=== PATIENT | female | born 1955 | race Caucasian/White ===

== ENCOUNTER → 2020-03-24 | Outpatient (CLI) | payer BC | END | disposition home or self-care (01) | LOC: RAD 14:28 | PROVIDERS: ATTEND Orthopaedic Surgery | DX: M17.11 Unilateral primary osteoarthritis, right knee (principal) | CPT/HCPCS: 73700 ==

== ENCOUNTER 2020-04-27 09:00 | Inpatient (IN) | payer BC ==
[2020-04-25 16:05] VITALS: BP 107/76
--- NOTE | 2020-04-25 16:34 | PCM.EKG ---
[facility] Test Date: 2020-04-25 Test Time: 16:18:36 Pat Name: OSCAR ALEJANDRA Department: Room: Gender: F Agency Sales Representative: SELENA : 1955 Requested By: ARMANDO NUNEZ Order Number: [id number] Reading MD: Measurements Intervals [place] Rate: 66 P: 62 CO: 114 QRS: 81 QRSD: 82 T: 22 QT: 460 QTc: 482 Interpretive Statements Normal sinus rhythm ST & T wave abnormality, consider anterior ischemia Prolonged QT No previous ECG available for comparison Please click the below link to view image of tracing.
[2020-04-25 16:45] LABS: BASOPHIL % 0.7 % (0.0-0.2); EOSINOPHIL # 0.1 10^3/uL (0.0-0.2); EOSINOPHIL % 2.6 % (0.0-5.0); LYMPHOCYTES % 43.8 % (24.0-44.0); MEAN CORP HGB 31.9 pg (26-34); MONOCYTES # 0.4 10^3/uL (0.3-0.8); MONOCYTES % 6.9 % (5.0-12.0); NEUTROPHIL # 2.5 10^3/uL (1.8-7.7); PLATELET COUNT 280 10^3/uL (150-400); RED CELL DISTRIBUTION WIDTH 12.3 % (11.5-14.5)
[2020-04-25 17:23] LABS: CALCIUM 8.5 mg/dL (8.4-10.5); CARBON DIOXIDE 26.9 mmol/L (20.0-32)
[2020-04-27] VITALS (10 sets, daily range): BP systolic 102–138; BP diastolic 41–82
[~2020-04-27] VITALS: Ht 170.2 cm; Wt 86.6 kg
[~2020-04-27 09:00] MED LIST: ASPI-485 PO; BACTROBAN OINTMENT TP ONE; BACTROBAN TP ONE; BLACK SEED OIL PEG; DICL50TA2 PO; LACTATED RINGERS 1,000 ML ONE; NS 100ML 100 ML IV ONE; NS 250ML 250 ML IV ONE; NS 3000ML IRR IR ONE; OMEP20CA19 PO; SODIUM CHLORIDE IRR BOTTLE IR ONE; VANCOMYCIN HCL 1 GM ONE; VANCOMYCIN HCL 1 GM in NS 250ML 250 ML IV ONE; WATER ONE
[2020-04-27] MEDS: LACTATED RINGERS 1,000 ML IV SCH ×2 (09:02→16:00)
[2020-04-27] MEDS ORDERED: ASCO500C PO (09:07)
[2020-04-27] MEDS ORDERED: MULT-632 PO (09:07)
[2020-04-27] MEDS ORDERED: VITA50004 PO (09:07)
[2020-04-27] MEDS ORDERED: VITA80003 PO (09:07)
[2020-04-27] MEDS ORDERED: EXPAREL 133 MG/10 ML VIAL IJ ONE (11:35)
[2020-04-27] MEDS ORDERED: TORADOL ONE (11:42)
[2020-04-27] MEDS ORDERED: LIDOCAINE 2% VIAL ONE (11:42)
[2020-04-27] MEDS ORDERED: NEOSTIGMINE ONE (11:42)
[2020-04-27] MEDS ORDERED: NAROPIN 0.2% 40 MG/20 ML VIAL ONE (11:42)
[2020-04-27] MEDS ORDERED: SUBLIMAZE ONE ×2 (11:43→14:48)
[2020-04-27] MEDS ORDERED: DECADRON ONE (11:43)
[2020-04-27] MEDS ORDERED: ZOFRAN ONE (11:43)
[2020-04-27] MEDS ORDERED: ROCURONIUM BROMIDE IV ONE (11:43)
[2020-04-27] MEDS ORDERED: DIPRIVAN IV ONE (11:44)
[2020-04-27] MEDS ORDERED: VERSED ONE ×2 (11:44→15:28)
[2020-04-27] MEDS ORDERED: DILAUDID ONE (11:44)
--- NOTE | 2020-04-27 14:33 | HPH ---
ADMIT DATE: 04/27/2020 CHIEF COMPLAINT: Painful right knee. HISTORY OF PRESENT ILLNESS: A 65-year-old female with a several year history of pain about the right knee. It got progressively worse over the last 3-4 months. She has difficulty walking for exercise as well as working out. She has pain with just household ambulation and complains of swelling and limping. She has tried bracing as well as a home exercise program and physical therapy. She tried some Voltaren as well as tramadol for the pain. The patient has also had several cortisone injections without improvement. ALLERGIES: THE PATIENT ALLERGIES INCLUDE PENICILLIN AND MINOCYCLINE. MEDICATIONS: Include Omeprazole as well as Voltaren. PAST MEDICAL HISTORY: She denies any medical problems. PAST SURGICAL HISTORY: Includes hysterectomy, cholecystectomy, tonsillectomy, back surgery. FAMILY HISTORY: Negative. SOCIAL HISTORY: She is and lives in [place]. He does not smoke or drink. REVIEW OF SYSTEMS: Negative for chest pain, shortness of breath, nausea, vomiting, melena, hematochezia, dysuria, hematuria, fever, chills or weight loss. PHYSICAL EXAMINATION: GENERAL: Shows a 5 feet, 7 inch, 145 pound female in no acute distress. HEENT: Within normal limits. CHEST: Clear to auscultation bilaterally. HEART: Regular rate and rhythm, no murmur. ABDOMEN: Soft, nontender, good bowel sounds. EXTREMITIES: Right knee has 1+ effusion. She has full range of motion. There is mild crepitation especially about the patellofemoral joint with flexion and extension. Her ligaments are all intact. She has no varus or valgus malalignment. NEUROLOGIC: Shows that she is awake and alert. She is oriented x 3. Her cranial nerves 2-12 are grossly intact. She has 5/5 strength in all muscle groups of both upper and lower extremities, bilaterally symmetric. IMAGING: MRI scan shows tricompartmental osteoarthritis about the right knee. ASSESSMENT: Osteoarthritis, right knee. PLAN: The patient is being admitted for right total knee arthroplasty. The risks and hazards of the procedure have been reviewed with the patient. She understands the risk involved and wants to proceed as planned. Jose A Velazquez MD DR: STEPAN/radha JOB# [id number]
--- NOTE | 2020-04-27 14:41 | OPH ---
DATE OF SURGERY: 04/27/2020 PREOPERATIVE DIAGNOSIS: Osteoarthritis of the right knee. POSTOPERATIVE DIAGNOSIS: Osteoarthritis of the right knee. OPERATIVE PROCEDURE: Right total knee arthroplasty using Medacta Sphere knee, size 4 femur, a size t3i4 tibia and a medium dome patella. All components were cemented. SURGEON: Jose A Velazquez MD ANESTHESIA: General endotracheal. TOURNIQUET TIME: 63 minutes at 300 mmHg. DRAINS: None. BLOOD LOSS: 300 mL. DESCRIPTION OF INDICATIONS: The patient is a 65-year-old female with a several year history of pain about the right knee, getting progressively worse over the last several months. She has difficulty with squatting as well as getting in and out of a chair. She complains of pain when she tries to work out or walk for exercise. She complains of limping and swelling. She had a long trial of conservative treatment and has not been successful in the long run including cortisone injections, anti-inflammatories, home exercise program, off the shelf bracing. The patient was taken to the operating room today for total knee arthroplasty. MRI scan shows tricompartmental osteoarthritis of the right knee. DESCRIPTION OF PROCEDURE: The patient was placed on the operating table in the supine position. A general endotracheal anesthetic was induced without difficulty. The patient had the right thigh padded and a tourniquet was applied. The right lower extremity was sterilely prepped and draped. The patient had the leg exsanguinated with an Esmarch and the tourniquet was inflated to 300 mmHg. The knee was flexed to 90 degrees. An anterior incision was made about the knee. Incision was taken through the skin and the subcutaneous tissues. The patient had full thickness flaps developed medially and laterally. A medial parapatellar arthrotomy was performed. The patient had the patella deviated laterally. The capsule and MCL were released around the posterior medial corner. Medial and lateral meniscectomies were performed. The anterior and posterior cruciate ligaments were released. The patient had the [employer] femoral cutting guide placed about the distal femur. Cutting guide was held into position with multiple pins and the distal femoral cut was made with the power saw. The patient then had the #2 size 4 cutting block applied. It was held into position with 2 screws and 2 pins. The patient had the anterior and posterior femoral cuts made as well as the chamfer cuts. The tibia was subluxed anteriorly. Medial and lateral meniscectomies were completed. The [employer] tibial guide was placed about the proximal tibia and held into position with multiple pins. Tibial cut was then made with the power saw. The patient had the patella everted. The peripheral osteophytes were trimmed. The peripheral edges were cauterized. The patellar cut was then made with the power saw. She still had 12 mm of patella left. The drill holes were made. Trial medium patella was used and had good coverage. The knee was flexed to 90 degrees. We used a t3i4 tibial trial component held into position with multiple pins. The central drill hole was made and the cruciate punch was used to stabilize the tibial component. A size 10 polyethylene component was tried. The size 4 femoral component was impacted into position. The knee went out into full extension. She had 120 degrees of flexion. There was excellent tracking of her patella. The final medial and lateral femoral drill holes were made. The femoral sulcus cut was made. The patient then had the trial components all removed. The bone ends were copiously irrigated and dried. A size t3i4 tibial component was cemented into position. The 10 mm insert was used and secured with an anterior screw. The size 4 femoral component was likewise cemented as well as a medium dome patella. After all the excess cement was removed and the cement had hardened, then the tourniquet was released. The knee had been irrigated for 3 minutes with Betadine-containing solution. The bleeding was controlled with the Aquamantys device. The capsule was then closed with a #2 PDS in interrupted [id number] manner. The subcutaneous was closed with 2-0 barbed Monocryl in a running subcuticular manner. The skin was closed with maliha. A suction Prevena type dressing was applied, reinforced with 4 x 4s, cast padding and an Nba wrap. The patient was extubated in the operating room, sent to recovery in stable condition. Jose A Velazquez MD DR: STEPAN/radha JOB# [id number]
[2020-04-27] MEDS ORDERED: OFIRMEV 100 ML IV ONE (14:47)
[2020-04-27] MEDS ORDERED: EPHEDRINE SULFATE IV PRN (15:00)
[2020-04-27] MEDS ORDERED: ULTRAM PO PRN (15:00)
[2020-04-27] MEDS ORDERED: CEPACOL SORE THROAT LOZENGE MM PRN (15:00)
[2020-04-27] MEDS ORDERED: BENADRYL IV PRN (15:00)
[2020-04-27] MEDS ORDERED: LACTATED RINGERS 1,000 ML IV SCH (15:00)
[2020-04-27] MEDS ORDERED: OFIRMEV IV ONE (15:00)
[2020-04-27] MEDS ORDERED: ZOFRAN IV PRN (15:00)
[2020-04-27] MEDS: VANCOMYCIN HCL 1 GM in NS 250ML 250 ML IV SCH (15:00)
[2020-04-27] MEDS ORDERED: DEMEROL IV PRN (15:00)
[2020-04-27] MEDS ORDERED: VENTOLIN IH PRN (15:00)
[2020-04-27] MEDS ORDERED: TRANDATE IV PRN (15:00)
[2020-04-27] MEDS ORDERED: SUBLIMAZE IV PRN (15:00)
[2020-04-27] MEDS ORDERED: DILAUDID IV PRN (15:00)
[2020-04-27] MEDS ORDERED: MORPHINE SULFATE ONE (15:28)
[2020-04-27] MEDS ORDERED: ULTRAM PO SCH (16:00)
--- NOTE | 2020-04-27 16:15 | NUR ---
patient arrived on unit from PACU report taken and vitals and admission assessment initiated.
[2020-04-27] MEDS ORDERED: ULTRAM ONE (17:11)
[2020-04-27] MEDS: VALIUM PO PRN (17:17)
--- NOTE | 2020-04-27 18:00 | NUR ---
Dinner Tray unable to contact the kitchen for a dinner tray contacted [facility] for a sandwich
[2020-04-27 18:04] LABS: MEAN CORP HGB 31.8 pg (26-34); RED CELL DISTRIBUTION WIDTH 12.4 % (11.5-14.5)
[2020-04-27] MEDS: TYLENOL PO SCH (18:48)
--- NOTE | 2020-04-27 19:12 | PRM.PN ---
Subjective Subjective Date: Apr 27, 2020 Time: 19:11 Subjective Complain of severe pain right knee VSS HGB 11.6 NVM+ Will adjust pain meds Patient History: Alzheimer's disease G8 MOTHER Asthma G8 FATHER Hypertension G8 FATHER No known health problems G8 BROTHER G8 SISTER G8 SISTER 19 CHILD No Family History of: Cerebrovascular disorder Chronic obstructive pulmonary disease Congestive heart failure Diabetes insipidus Diabetes mellitus Parkinson's disease VTE VTE Risk Total Score: >5 VTE Risk Score VTE Risk: Score 0-1 = Low Risk (Aggressive mobilization; early ambulation; no VTE prophylaxis required) Score 2: Moderate Risk (Intermittent/Pneumatic Compression Device OR Lovenox/Heparin/Coumadin) Score 3-4: High Risk (Intermittent/Pneumatic Compression Device AND Lovenox/Heparin/Coumadin) Score > or =5: Highest Risk (Intermittent/Pneumatic Compression Device AND Lovenox/Heparin/Coumadin) Review of Systems Allergies: Coded Allergies: Penicillins (Verified Allergy, Severe, Anaphylaxis Shock, 04/25/20) minocycline (Verified Allergy, Unknown, DIZZINESS, 04/25/20) Scheduled Ascorbic Acid (Vitamin C), 500 MG PO DAILY24 Aspirin (Aspir 81), 1 TAB PO QD, (Reported) Diclofenac Potassium (Diclofenac Potassium), 1 TAB PO BID, (Reported) Multivitamin (Multi Vitamin Daily), 1 EACH PO DAILY24 Omeprazole (Omeprazole), 1 CAP PO DAILY, (Reported) Vitamin A (Vitamin A), 8,000 UNIT PO DAILY24 Vitamin D3/Folic Acid (Dermacinrx Purefolix Tablet), 10,000 UNIT PO 5 X WEEK [Black Seed Oil], 1 CAP PEG DAILY24, (Reported) Objective Vitals and I/O Vital Sign - Last 24 Hours 04/27/20 04/27/20 04/27/20 04/27/20 08:56 08:56 14:27 14:27 Temp 98.2 97.0 Pulse 84 69 Resp 16 16 B/P (MAP) 125/82 (96) 138/78 (98) Pulse Ox 98 96 O2 Delivery Room Air Room Air Non-Rebreather O2 Flow Rate 15 15 04/27/20 04/27/20 04/27/20 04/27/20 14:37 14:47 14:57 15:07 Temp 97.7 97.9 97.5 97.1 Pulse 55 64 62 57 Resp 17 18 18 18 B/P (MAP) 120/58 (78) 113/64 (80) 102/41 (61) 110/50 (70) Pulse Ox 100 100 98 99 O2 Delivery Non-Rebreather Non-Rebreather Room Air Room Air O2 Flow Rate 10 10 04/27/20 04/27/20 04/27/20 04/27/20 15:17 15:27 17:14 17:28 Temp 97.7 97.3 Pulse 49 58 56 Resp 17 17 17 B/P (MAP) 111/41 (64) 111/79 (90) Pulse Ox 100 98 98 100 O2 Delivery Room Air Room Air Nasal Cannula O2 Flow Rate 2.00 04/27/20 04/27/20 04/27/20 04/27/20 18:37 18:38 18:41 19:08 Temp 98.0 Pulse 70 Resp 18 B/P (MAP) 104/65 (78) Pulse Ox 99 O2 Delivery Room Air Room Air Nasal Cannula O2 Flow Rate 2.00 All Results(Lab/Rad) Laboratory Tests Test 04/27/20 17:45 White Blood Count 9.3 10^3/uL Red Blood Count 3.65 10^6/uL Hemoglobin 11.6 g/dL Hematocrit 34.1 % Mean Corpuscular Volume 93.4 fL Mean Corpuscular Hemoglobin 31.8 pg Mean Corpuscular Hemoglobin Concent 34.0 g/dL Red Cell Distribution Width 12.4 % Platelet Count 240 10^3/uL Mean Platelet Volume 9.7 fL Current Medications Medications (Trade) Dose Ordered Sig/Donell Route PRN Reason Start Time Stop Time Status Last Admin Dose Admin Sodium Chloride 250 ml @ ud STK-MED ONCE IV 04/26/20 08:53 04/26/20 08:55 DC Vancomycin HCl 1 ml @ ud STK-MED ONCE .ROUTE 04/26/20 08:53 04/26/20 08:56 DC Mupirocin (Bactroban Ointment) 1 gm STK-MED ONCE TP 04/26/20 08:55 04/26/20 08:58 DC Vancomycin HCl 1 gm/Sodium Chloride 250 ml @ 175 mls/hr OT ONCE IV 04/27/20 06:00 04/27/20 07:25 UNV 04/27/20 10:20 Mupirocin (Bactroban) 1 gm OT ONCE TP 04/27/20 06:00 04/27/20 06:01 UNV Sodium Chloride (Sodium Chloride Irr Bottle) 1,000 ml STK-MED ONCE IR 04/27/20 07:10 04/27/20 07:13 DC Sterile Water (Water) 1,000 ml STK-MED ONCE .ROUTE 04/27/20 07:10 04/27/20 07:13 DC Sodium Chloride 100 ml @ ud STK-MED ONCE IV 04/27/20 07:10 04/27/20 07:13 DC Sodium Chloride 250 ml @ ud STK-MED ONCE IV 04/27/20 07:11 04/27/20 07:13 DC Sodium Chloride (NS 3000ml Irr) 3,000 ml STK-MED ONCE IR 04/27/20 07:11 04/27/20 07:14 DC Mupirocin (Bactroban Ointment) 1 gm OT ONCE TP 04/27/20 08:50 04/27/20 08:51 UNV Diazepam (Valium) 10 mg OT PRN PO ANXIETY 04/27/20 09:00 05/27/20 08:59 UNV 04/27/20 17:17 Ropivacaine (Naropin 0.2% 40 Mg/20 ml Vial) 2 mg STK-MED ONCE .ROUTE 04/27/20 11:42 04/27/20 11:44 DC Lidocaine HCl (Lidocaine 2% Vial) 500 mg STK-MED ONCE .ROUTE 04/27/20 11:42 04/27/20 11:44 DC Neostigmine Methylsulfate (Neostigmine) 10 mg STK-MED ONCE .ROUTE 04/27/20 11:42 04/27/20 11:44 DC Ketorolac Tromethamine (Toradol) 30 mg STK-MED ONCE .ROUTE 04/27/20 11:42 04/27/20 11:44 DC Ondansetron HCl (Zofran) 4 mg STK-MED ONCE .ROUTE 04/27/20 11:43 04/27/20 11:44 DC Dexamethasone Sodium Phosphate (Decadron) 10 mg STK-MED ONCE .ROUTE 04/27/20 11:43 04/27/20 11:44 DC Rocuronium [place] (Rocuronium [place]) 50 mg STK-MED ONCE IV 04/27/20 11:43 04/27/20 11:45 DC Fentanyl Citrate (Sublimaze) 50 mcg STK-MED ONCE .ROUTE 04/27/20 11:43 04/27/20 11:45 DC Hydromorphone HCl (Dilaudid) 2 mg STK-MED ONCE .ROUTE 04/27/20 11:44 04/27/20 11:46 DC Propofol (Diprivan) 200 mg STK-MED ONCE IV 04/27/20 11:44 04/27/20 11:46 DC Tramadol HCl (Ultram) 50 mg Q4HR PO 04/27/20 16:00 05/27/20 15:59 UNV Tramadol HCl (Ultram) 100 mg Q4HR PRN PO PAIN 4 - 6 04/27/20 15:00 05/27/20 14:59 UNV 04/27/20 17:16 Rivaroxaban (Xarelto) 10 mg DAILY PO 04/28/20 09:00 05/28/20 08:59 UNV Docusate Sodium (Colace) 100 mg DAILY PO 04/28/20 09:00 05/28/20 08:59 UNV Throat Lozenges (Cepacol Sore Throat Lozenge) 1 each PRN PRN MM SORE THROAT 04/27/20 15:00 05/27/20 14:59 UNV Famotidine (Pepcid) 20 mg DAILY PO 04/28/20 09:00 05/28/20 08:59 UNV Celecoxib (Celebrex) 200 mg BID PO 04/27/20 21:00 05/27/20 20:59 UNV Vancomycin HCl 1 gm/Sodium Chloride 250 ml @ 175 mls/hr Q12H IV 04/27/20 15:00 04/28/20 16:26 UNV Acetaminophen (Tylenol) 1,000 mg Q6HR PO 04/27/20 18:00 05/27/20 17:59 UNV 04/27/20 18:48 Diazepam (Valium) 5 mg Q6HR PRN PO MUSCLE SPASM 04/27/20 15:00 05/27/20 14:59 UNV Hydromorphone HCl (Dilaudid) 2 mg Q6HR PRN IV PAIN 7 - 10 04/27/20 15:00 05/27/20 14:59 UNV Hydromorphone HCl (Dilaudid) 0.2 mg Q5M PRN IV PAIN 1 - 3 04/27/20 15:00 04/28/20 14:59 UNV Fentanyl Citrate (Sublimaze) 12.5 mcg Q5MIN PRN IV PAIN 04/27/20 15:00 04/28/20 14:59 UNV 04/27/20 14:53 Ondansetron HCl (Zofran) 4 mg OT PRN IV nausea 04/27/20 15:00 UNV Diphenhydramine HCl (Benadryl) 25 mg Q5MIN PRN IV NAUSEA / VOMITING 04/27/20 15:00 UNV Ephedrine Sulfate (Ephedrine Sulfate) 5 mg PRN PRN IV HYPOTENSION SBP <90, 04/27/20 15:00 UNV Meperidine HCl (Demerol) 12.5 mg Q5MIN PRN IV SHIVERING 04/27/20 15:00 05/27/20 14:59 UNV Albuterol Sulfate (Ventolin) 2.5 mg OT PRN IH wheezing 04/27/20 15:00 UNV Labetalol HCl (Trandate) 5 mg Q5MIN PRN IV HYPERTENSION 04/27/20 15:00 05/27/20 14:59 UNV Acetaminophen 100 ml @ ud STK-MED ONCE IV 04/27/20 14:47 04/27/20 14:49 DC Fentanyl Citrate (Sublimaze) 50 mcg STK-MED ONCE .ROUTE 04/27/20 14:48 04/27/20 14:50 DC Acetaminophen (Ofirmev) 1,000 mg OT ONCE IV 04/27/20 15:00 04/27/20 15:01 UNV Morphine Sulfate (Morphine Sulfate) 2 mg STK-MED ONCE .ROUTE 04/27/20 15:28 04/27/20 15:30 DC Course Sepsis Screening Results: Posi: NEGATIVE Sepsis Qualifier/Stage: NO DEFINITE RISK Vitals & review Data Vital Sign - Last 24 Hours 04/27/20 04/27/20 04/27/20 04/27/20 08:56 08:56 14:27 14:27 Temp 98.2 97.0 Pulse 84 69 Resp 16 16 B/P (MAP) 125/82 (96) 138/78 (98) Pulse Ox 98 96 O2 Delivery Room Air Room Air Non-Rebreather O2 Flow Rate 15 15 04/27/20 04/27/20 04/27/20 04/27/20 14:37 14:47 14:57 15:07 Temp 97.7 97.9 97.5 97.1 Pulse 55 64 62 57 Resp 17 18 18 18 B/P (MAP) 120/58 (78) 113/64 (80) 102/41 (61) 110/50 (70) Pulse Ox 100 100 98 99 O2 Delivery Non-Rebreather Non-Rebreather Room Air Room Air O2 Flow Rate 10 10 04/27/20 04/27/20 04/27/20 04/27/20 15:17 15:27 17:14 17:28 Temp 97.7 97.3 Pulse 49 58 56 Resp 17 17 17 B/P (MAP) 111/41 (64) 111/79 (90) Pulse Ox 100 98 98 100 O2 Delivery Room Air Room Air Nasal Cannula O2 Flow Rate 2.00 04/27/20 04/27/20 04/27/20 04/27/20 18:37 18:38 18:41 19:08 Temp 98.0 Pulse 70 Resp 18 B/P (MAP) 104/65 (78) Pulse Ox 99 O2 Delivery Room Air Room Air Nasal Cannula O2 Flow Rate 2.00 Laboratory Tests Test 04/27/20 17:45 White Blood Count 9.3 10^3/uL Red Blood Count 3.65 10^6/uL Hemoglobin 11.6 g/dL Hematocrit 34.1 % Mean Corpuscular Volume 93.4 fL Mean Corpuscular Hemoglobin 31.8 pg Mean Corpuscular Hemoglobin Concent 34.0 g/dL Red Cell Distribution Width 12.4 % Platelet Count 240 10^3/uL Mean Platelet Volume 9.7 fL Current Medications Medications (Trade) Dose Ordered Sig/Donell PRN Reason Start Time Stop Time Status Last Admin Acetaminophen (Tylenol) 1,000 mg Q6HR 04/27/20 18:00 05/27/20 17:59 UNV 04/27/20 18:48 Albuterol Sulfate (Ventolin) 2.5 mg OT PRN wheezing 04/27/20 15:00 UNV Celecoxib (Celebrex) 200 mg BID 04/27/20 21:00 05/27/20 20:59 UNV Diazepam (Valium) 5 mg Q6HR PRN MUSCLE SPASM 04/27/20 15:00 05/27/20 14:59 UNV Diazepam (Valium) 10 mg OT PRN ANXIETY 04/27/20 09:00 05/27/20 08:59 UNV 04/27/20 17:17 Diphenhydramine HCl (Benadryl) 25 mg Q5MIN PRN NAUSEA / VOMITING 04/27/20 15:00 UNV Docusate Sodium (Colace) 100 mg DAILY 04/28/20 09:00 05/28/20 08:59 UNV Ephedrine Sulfate (Ephedrine Sulfate) 5 mg PRN PRN HYPOTENSION SBP <90, 04/27/20 15:00 UNV Famotidine (Pepcid) 20 mg DAILY 04/28/20 09:00 05/28/20 08:59 UNV Fentanyl Citrate (Sublimaze) 12.5 mcg Q5MIN PRN PAIN 04/27/20 15:00 04/28/20 14:59 UNV 04/27/20 14:53 Hydromorphone HCl (Dilaudid) 0.2 mg Q5M PRN PAIN 1 - 3 04/27/20 15:00 04/28/20 14:59 UNV Hydromorphone HCl (Dilaudid) 2 mg Q6HR PRN PAIN 7 - 10 04/27/20 15:00 05/27/20 14:59 UNV Labetalol HCl (Trandate) 5 mg Q5MIN PRN HYPERTENSION 04/27/20 15:00 05/27/20 14:59 UNV Meperidine HCl (Demerol) 12.5 mg Q5MIN PRN SHIVERING 04/27/20 15:00 05/27/20 14:59 UNV Ondansetron HCl (Zofran) 4 mg OT PRN nausea 04/27/20 15:00 UNV Rivaroxaban (Xarelto) 10 mg DAILY 04/28/20 09:00 05/28/20 08:59 UNV Throat Lozenges (Cepacol Sore Throat Lozenge) 1 each PRN PRN SORE THROAT 04/27/20 15:00 05/27/20 14:59 UNV Tramadol HCl (Ultram) 50 mg Q4HR 04/27/20 16:00 05/27/20 15:59 UNV Tramadol HCl (Ultram) 100 mg Q4HR PRN PAIN 4 - 6 04/27/20 15:00 05/27/20 14:59 UNV 04/27/20 17:16 Vancomycin HCl 1 gm/Sodium Chloride 250 ml @ 175 mls/hr Q12H 04/27/20 15:00 04/28/20 16:26 UNV LEVEL 1 SEPSIS INFECTION CRITE: Recent Invasive Procedure LEVEL 2-SIRS (LIST ALL THAT AP: None/Not assessed Cardiovascular Evidence: Not Assessed or None Hematologic Evidence: None/Not assessed Hepatic Evidence: None/Not assessed Metabolic Evidence: None/Not assessed Neurological Evidence: None/Not assessed Respiratory Evidence: None/Not assessed Renal Evidence: None/Not assessed O2 Sat by Pulse Oximetry: 99 Oxygen Flow Rate: 2.00 ARMANDO NUNEZ MD Apr 27, 2020 19:12
[2020-04-27] MEDS: DILAUDID IV PRN (19:16)
[2020-04-27] MEDS ORDERED: TYLENOL #4 PO SCH (19:30)
--- NOTE | 2020-04-27 19:54 | DIREP ---
PROCEDURE:XRAY KNEE 2 VWS-RT COMPARISON:None. INDICATIONS:POST RIGHT TOTAL KNEE REPLACEMENT FINDINGS: FINDINGS: BONES:Knee replacement seen. JOINTS:Alignment appears appropriate. SOFT TISSUES:Soft tissue swelling and gas noted. Soft tissue drain noted. OTHER:No additional findings. CONCLUSION:Knee replacement as above. Dictated by: Ankur Carrasco MD on 04/27/2020 at 07:52 PM
[2020-04-27] MEDS: CELEBREX PO SCH (21:11)
[2020-04-27] MEDS: TYLENOL #4 PO PRN (21:21)
[2020-04-28] MEDS ORDERED: VANCOMYCIN HCL 1 GM ONE (00:20)
[2020-04-28] MEDS ORDERED: NS 250ML 250 ML IV ONE (00:21)
[2020-04-28] MEDS: VANCOMYCIN HCL 1 GM in NS 250ML 250 ML IV SCH ×2 (00:25→13:24)
[2020-04-28 00:44] VITALS: BP 109/79
[2020-04-28] MEDS: TYLENOL #4 PO PRN ×2 (02:07→10:25)
[2020-04-28 04:05] VITALS: BP 90/55
[2020-04-28 05:43] LABS: MEAN CORP HGB 32.2 pg (26-34); RED CELL DISTRIBUTION WIDTH 12.2 % (11.5-14.5)
[2020-04-28] MEDS: TYLENOL PO SCH ×3 (06:00→13:25)
[2020-04-28] MEDS: DILAUDID IV PRN ×2 (07:59→13:31)
[2020-04-28 08:06] VITALS: BP 90/56
--- NOTE | 2020-04-28 08:54 | PRM.PN ---
Subjective Subjective Date: Apr 28, 2020 Time: 08:51 Subjective Pt states that her neck hurts worse than knee this am Hx of cervical disk dz BP 90/56 Pulse 56 HGB 9.8 post op anemia from surgical blood loss expected start PT Try fluid challenge for BP Patient History: Alzheimer's disease G8 MOTHER Asthma G8 FATHER Hypertension G8 FATHER No known health problems G8 BROTHER G8 SISTER G8 SISTER 19 CHILD No Family History of: Cerebrovascular disorder Chronic obstructive pulmonary disease Congestive heart failure Diabetes insipidus Diabetes mellitus Parkinson's disease VTE VTE Risk Total Score: >5 VTE Risk Score VTE Risk: Score 0-1 = Low Risk (Aggressive mobilization; early ambulation; no VTE prophylaxis required) Score 2: Moderate Risk (Intermittent/Pneumatic Compression Device OR Lovenox/Heparin/Coumadin) Score 3-4: High Risk (Intermittent/Pneumatic Compression Device AND Lovenox/Heparin/Coumadin) Score > or =5: Highest Risk (Intermittent/Pneumatic Compression Device AND Lovenox/Heparin/Coumadin) Review of Systems Allergies: Coded Allergies: Penicillins (Verified Allergy, Severe, Anaphylaxis Shock, 04/25/20) minocycline (Verified Allergy, Unknown, DIZZINESS, 04/25/20) Scheduled Ascorbic Acid (Vitamin C), 500 MG PO DAILY24 Aspirin (Aspir 81), 1 TAB PO QD, (Reported) Diclofenac Potassium (Diclofenac Potassium), 1 TAB PO BID, (Reported) Multivitamin (Multi Vitamin Daily), 1 EACH PO DAILY24 Omeprazole (Omeprazole), 1 CAP PO DAILY, (Reported) Vitamin A (Vitamin A), 8,000 UNIT PO DAILY24 Vitamin D3/Folic Acid (Dermacinrx Purefolix Tablet), 10,000 UNIT PO 5 X WEEK [Black Seed Oil], 1 CAP PEG DAILY24, (Reported) Objective Vitals and I/O Vital Sign - Last 24 Hours 04/27/20 04/27/20 04/27/20 04/27/20 08:56 08:56 14:27 14:27 Temp 98.2 97.0 Pulse 84 69 Resp 16 16 B/P (MAP) 125/82 (96) 138/78 (98) Pulse Ox 98 96 O2 Delivery Room Air Room Air Non-Rebreather O2 Flow Rate 15 15 04/27/20 04/27/20 04/27/20 04/27/20 14:37 14:47 14:57 15:07 Temp 97.7 97.9 97.5 97.1 Pulse 55 64 62 57 Resp 17 18 18 18 B/P (MAP) 120/58 (78) 113/64 (80) 102/41 (61) 110/50 (70) Pulse Ox 100 100 98 99 O2 Delivery Non-Rebreather Non-Rebreather Room Air Room Air O2 Flow Rate 10 10 04/27/20 04/27/20 04/27/20 04/27/20 15:17 15:27 17:14 17:28 Temp 97.7 97.3 Pulse 49 58 56 Resp 17 17 17 B/P (MAP) 111/41 (64) 111/79 (90) Pulse Ox 100 98 98 100 O2 Delivery Room Air Room Air Nasal Cannula O2 Flow Rate 2.00 04/27/20 04/27/20 04/27/20 04/27/20 18:37 18:38 18:41 19:08 Temp 98.0 Pulse 70 Resp 18 B/P (MAP) 104/65 (78) Pulse Ox 99 O2 Delivery Room Air Room Air Nasal Cannula O2 Flow Rate 2.00 04/27/20 04/27/20 04/28/20 04/28/20 21:00 21:07 00:44 00:59 Temp 97.9 97.9 Pulse 70 67 64 Resp 18 18 18 B/P (MAP) 115/60 (78) 109/79 (89) Pulse Ox 99 99 99 O2 Delivery Nasal Cannula Nasal Canula Nasal Canula Nasal Cannula O2 Flow Rate 2.00 2.00 2.00 2.00 FiO2 28 04/28/20 04/28/20 04/28/20 04:05 07:46 08:06 Temp 97.5 98.2 Pulse 59 67 55 Resp 18 18 18 B/P (MAP) 90/55 (67) 90/56 (67) Pulse Ox 97 97 98 O2 Delivery Room Air Room Air Room Air FiO2 21 Intake and Output 04/28/20 07:00 Intake Total 8525 ml Output Total 2825 ml Balance 5700 ml All Results(Lab/Rad) Laboratory Tests Test 04/27/20 17:45 White Blood Count 9.3 10^3/uL Red Blood Count 3.65 10^6/uL Hemoglobin 11.6 g/dL Hematocrit 34.1 % Mean Corpuscular Volume 93.4 fL Mean Corpuscular Hemoglobin 31.8 pg Mean Corpuscular Hemoglobin Concent 34.0 g/dL Red Cell Distribution Width 12.4 % Platelet Count 240 10^3/uL Mean Platelet Volume 9.7 fL Current Medications Medications (Trade) Dose Ordered Sig/Donell Route PRN Reason Start Time Stop Time Status Last Admin Dose Admin Sodium Chloride 250 ml @ ud STK-MED ONCE IV 04/26/20 08:53 04/26/20 08:55 DC Vancomycin HCl 1 ml @ ud STK-MED ONCE .ROUTE 04/26/20 08:53 04/26/20 08:56 DC Mupirocin (Bactroban Ointment) 1 gm STK-MED ONCE TP 04/26/20 08:55 04/26/20 08:58 DC Vancomycin HCl 1 gm/Sodium Chloride 250 ml @ 175 mls/hr OT ONCE IV 04/27/20 06:00 04/27/20 07:25 UNV 04/27/20 10:20 Mupirocin (Bactroban) 1 gm OT ONCE TP 04/27/20 06:00 04/27/20 06:01 UNV Sodium Chloride (Sodium Chloride Irr Bottle) 1,000 ml STK-MED ONCE IR 04/27/20 07:10 04/27/20 07:13 DC Sterile Water (Water) 1,000 ml STK-MED ONCE .ROUTE 04/27/20 07:10 04/27/20 07:13 DC Sodium Chloride 100 ml @ ud STK-MED ONCE IV 04/27/20 07:10 04/27/20 07:13 DC Sodium Chloride 250 ml @ ud STK-MED ONCE IV 04/27/20 07:11 04/27/20 07:13 DC Sodium Chloride (NS 3000ml Irr) 3,000 ml STK-MED ONCE IR 04/27/20 07:11 04/27/20 07:14 DC Mupirocin (Bactroban Ointment) 1 gm OT ONCE TP 04/27/20 08:50 04/27/20 08:51 UNV Diazepam (Valium) 10 mg OT PRN PO ANXIETY 04/27/20 09:00 05/27/20 08:59 UNV 04/27/20 17:17 Ropivacaine (Naropin 0.2% 40 Mg/20 ml Vial) 2 mg STK-MED ONCE .ROUTE 04/27/20 11:42 04/27/20 11:44 DC Lidocaine HCl (Lidocaine 2% Vial) 500 mg STK-MED ONCE .ROUTE 04/27/20 11:42 04/27/20 11:44 DC Neostigmine Methylsulfate (Neostigmine) 10 mg STK-MED ONCE .ROUTE 04/27/20 11:42 04/27/20 11:44 DC Ketorolac Tromethamine (Toradol) 30 mg STK-MED ONCE .ROUTE 04/27/20 11:42 04/27/20 11:44 DC Ondansetron HCl (Zofran) 4 mg STK-MED ONCE .ROUTE 04/27/20 11:43 04/27/20 11:44 DC Dexamethasone Sodium Phosphate (Decadron) 10 mg STK-MED ONCE .ROUTE 04/27/20 11:43 04/27/20 11:44 DC Rocuronium [place] (Rocuronium [place]) 50 mg STK-MED ONCE IV 04/27/20 11:43 04/27/20 11:45 DC Fentanyl Citrate (Sublimaze) 50 mcg STK-MED ONCE .ROUTE 04/27/20 11:43 04/27/20 11:45 DC Hydromorphone HCl (Dilaudid) 2 mg STK-MED ONCE .ROUTE 04/27/20 11:44 04/27/20 11:46 DC Propofol (Diprivan) 200 mg STK-MED ONCE IV 04/27/20 11:44 04/27/20 11:46 DC Tramadol HCl (Ultram) 50 mg Q4HR PO 04/27/20 16:00 05/27/20 15:59 UNV Tramadol HCl (Ultram) 100 mg Q4HR PRN PO PAIN 4 - 6 04/27/20 15:00 05/27/20 14:59 UNV 04/27/20 17:16 Rivaroxaban (Xarelto) 10 mg DAILY PO 04/28/20 09:00 05/28/20 08:59 UNV Docusate Sodium (Colace) 100 mg DAILY PO 04/28/20 09:00 05/28/20 08:59 UNV Throat Lozenges (Cepacol Sore Throat Lozenge) 1 each PRN PRN MM SORE THROAT 04/27/20 15:00 05/27/20 14:59 UNV Famotidine (Pepcid) 20 mg DAILY PO 04/28/20 09:00 05/28/20 08:59 UNV Celecoxib (Celebrex) 200 mg BID PO 04/27/20 21:00 05/27/20 20:59 UNV Vancomycin HCl 1 gm/Sodium Chloride 250 ml @ 175 mls/hr Q12H IV 04/27/20 15:00 04/28/20 16:26 UNV Acetaminophen (Tylenol) 1,000 mg Q6HR PO 04/27/20 18:00 05/27/20 17:59 UNV 04/27/20 18:48 Diazepam (Valium) 5 mg Q6HR PRN PO MUSCLE SPASM 04/27/20 15:00 05/27/20 14:59 UNV Hydromorphone HCl (Dilaudid) 2 mg Q6HR PRN IV PAIN 7 - 10 04/27/20 15:00 05/27/20 14:59 UNV Hydromorphone HCl (Dilaudid) 0.2 mg Q5M PRN IV PAIN 1 - 3 04/27/20 15:00 04/28/20 14:59 UNV Fentanyl Citrate (Sublimaze) 12.5 mcg Q5MIN PRN IV PAIN 04/27/20 15:00 04/28/20 14:59 UNV 04/27/20 14:53 Ondansetron HCl (Zofran) 4 mg OT PRN IV nausea 04/27/20 15:00 UNV Diphenhydramine HCl (Benadryl) 25 mg Q5MIN PRN IV NAUSEA / VOMITING 04/27/20 15:00 UNV Ephedrine Sulfate (Ephedrine Sulfate) 5 mg PRN PRN IV HYPOTENSION SBP <90, 04/27/20 15:00 UNV Meperidine HCl (Demerol) 12.5 mg Q5MIN PRN IV SHIVERING 04/27/20 15:00 05/27/20 14:59 UNV Albuterol Sulfate (Ventolin) 2.5 mg OT PRN IH wheezing 04/27/20 15:00 UNV Labetalol HCl (Trandate) 5 mg Q5MIN PRN IV HYPERTENSION 04/27/20 15:00 05/27/20 14:59 UNV Acetaminophen 100 ml @ ud STK-MED ONCE IV 04/27/20 14:47 04/27/20 14:49 DC Fentanyl Citrate (Sublimaze) 50 mcg STK-MED ONCE .ROUTE 04/27/20 14:48 04/27/20 14:50 DC Acetaminophen (Ofirmev) 1,000 mg OT ONCE IV 04/27/20 15:00 04/27/20 15:01 UNV Morphine Sulfate (Morphine Sulfate) 2 mg STK-MED ONCE .ROUTE 04/27/20 15:28 04/27/20 15:30 DC Course Sepsis Screening Results: Posi: NEGATIVE Sepsis Qualifier/Stage: NO DEFINITE RISK Vitals & review Data Vital Sign - Last 24 Hours 04/27/20 04/27/20 04/27/20 04/27/20 08:56 08:56 14:27 14:27 Temp 98.2 97.0 Pulse 84 69 Resp 16 16 B/P (MAP) 125/82 (96) 138/78 (98) Pulse Ox 98 96 O2 Delivery Room Air Room Air Non-Rebreather O2 Flow Rate 15 15 04/27/20 04/27/20 04/27/20 04/27/20 14:37 14:47 14:57 15:07 Temp 97.7 97.9 97.5 97.1 Pulse 55 64 62 57 Resp 17 18 18 18 B/P (MAP) 120/58 (78) 113/64 (80) 102/41 (61) 110/50 (70) Pulse Ox 100 100 98 99 O2 Delivery Non-Rebreather Non-Rebreather Room Air Room Air O2 Flow Rate 10 10 04/27/20 04/27/20 04/27/20 04/27/20 15:17 15:27 17:14 17:28 Temp 97.7 97.3 Pulse 49 58 56 Resp 17 17 17 B/P (MAP) 111/41 (64) 111/79 (90) Pulse Ox 100 98 98 100 O2 Delivery Room Air Room Air Nasal Cannula O2 Flow Rate 2.00 04/27/20 04/27/20 04/27/20 04/27/20 18:37 18:38 18:41 19:08 Temp 98.0 Pulse 70 Resp 18 B/P (MAP) 104/65 (78) Pulse Ox 99 O2 Delivery Room Air Room Air Nasal Cannula O2 Flow Rate 2.00 Laboratory Tests Test 04/27/20 17:45 White Blood Count 9.3 10^3/uL Red Blood Count 3.65 10^6/uL Hemoglobin 11.6 g/dL Hematocrit 34.1 % Mean Corpuscular Volume 93.4 fL Mean Corpuscular Hemoglobin 31.8 pg Mean Corpuscular Hemoglobin Concent 34.0 g/dL Red Cell Distribution Width 12.4 % Platelet Count 240 10^3/uL Mean Platelet Volume 9.7 fL Current Medications Medications (Trade) Dose Ordered Sig/Donell PRN Reason Start Time Stop Time Status Last Admin Acetaminophen (Tylenol) 1,000 mg Q6HR 04/27/20 18:00 05/27/20 17:59 UNV 04/27/20 18:48 Albuterol Sulfate (Ventolin) 2.5 mg OT PRN wheezing 04/27/20 15:00 UNV Celecoxib (Celebrex) 200 mg BID 04/27/20 21:00 05/27/20 20:59 UNV Diazepam (Valium) 5 mg Q6HR PRN MUSCLE SPASM 04/27/20 15:00 05/27/20 14:59 UNV Diazepam (Valium) 10 mg OT PRN ANXIETY 04/27/20 09:00 05/27/20 08:59 UNV 04/27/20 17:17 Diphenhydramine HCl (Benadryl) 25 mg Q5MIN PRN NAUSEA / VOMITING 04/27/20 15:00 UNV Docusate Sodium (Colace) 100 mg DAILY 04/28/20 09:00 05/28/20 08:59 UNV Ephedrine Sulfate (Ephedrine Sulfate) 5 mg PRN PRN HYPOTENSION SBP <90, 04/27/20 15:00 UNV Famotidine (Pepcid) 20 mg DAILY 04/28/20 09:00 05/28/20 08:59 UNV Fentanyl Citrate (Sublimaze) 12.5 mcg Q5MIN PRN PAIN 04/27/20 15:00 04/28/20 14:59 UNV 04/27/20 14:53 Hydromorphone HCl (Dilaudid) 0.2 mg Q5M PRN PAIN 1 - 3 04/27/20 15:00 04/28/20 14:59 UNV Hydromorphone HCl (Dilaudid) 2 mg Q6HR PRN PAIN 7 - 10 04/27/20 15:00 05/27/20 14:59 UNV Labetalol HCl (Trandate) 5 mg Q5MIN PRN HYPERTENSION 04/27/20 15:00 05/27/20 14:59 UNV Meperidine HCl (Demerol) 12.5 mg Q5MIN PRN SHIVERING 04/27/20 15:00 05/27/20 14:59 UNV Ondansetron HCl (Zofran) 4 mg OT PRN nausea 04/27/20 15:00 UNV Rivaroxaban (Xarelto) 10 mg DAILY 04/28/20 09:00 05/28/20 08:59 UNV Throat Lozenges (Cepacol Sore Throat Lozenge) 1 each PRN PRN SORE THROAT 04/27/20 15:00 05/27/20 14:59 UNV Tramadol HCl (Ultram) 50 mg Q4HR 04/27/20 16:00 05/27/20 15:59 UNV Tramadol HCl (Ultram) 100 mg Q4HR PRN PAIN 4 - 6 04/27/20 15:00 05/27/20 14:59 UNV 04/27/20 17:16 Vancomycin HCl 1 gm/Sodium Chloride 250 ml @ 175 mls/hr Q12H 04/27/20 15:00 04/28/20 16:26 UNV LEVEL 1 SEPSIS INFECTION CRITE: ABX Therapy, Recent Invasive Procedure LEVEL 2-SIRS (LIST ALL THAT AP: None/Not assessed Cardiovascular Evidence: Not Assessed or None Hematologic Evidence: None/Not assessed Hepatic Evidence: None/Not assessed Metabolic Evidence: None/Not assessed Neurological Evidence: None/Not assessed Respiratory Evidence: None/Not assessed Renal Evidence: None/Not assessed O2 Sat by Pulse Oximetry: 98 Oxygen Flow Rate: 2.00 ARMANDO NUNEZ MD Apr 28, 2020 08:53
[2020-04-28] MEDS: PEPCID PO SCH (09:15)
[2020-04-28] MEDS: XARELTO PO SCH (09:15)
[2020-04-28] MEDS: COLACE PO SCH (09:15)
[2020-04-28] MEDS: CELEBREX PO SCH ×2 (09:16→21:33)
[2020-04-28] MEDS: VALIUM PO PRN ×2 (09:19→14:03)
--- NOTE | 2020-04-28 11:15 | NUR ---
DISCHARGE PLAN CASE MANAGEMENT VISITED WITH PT AT BEDSIDE CONCERNING DISCHARGE PLAN AND NEEDS. LIVES AT HOME WITH SPOUSE IN [place]. INDEPENDENT OF ADLS WITHOUT AMBULATION DEVICE OR ASSISTANCE PRIOR TO THIS ADMISSION. HAS DME INCLUDING WALKER AND ACCESSIBLE SHOWER. DENIES NEED FOR HOME OXYGEN. CM EDUCATED PT ON OUTPATIENT SERVICES, HH, AND SNF/SBU. PT REQUESTED TO HAVE [facility] OUTPATIENT PT FOR THERAPY SERVICES. ORDER OBTAINED FROM DR. NUNEZ. CHOICE LETTER PRESENTED, SIGNED, AND PLACED ON CHART. CM CONTACTED [facility] OUTPATIENT FOR APPOINTMENT April, @ 8:00AM. PCP IS IN [place]. DC PLAN IS TO DC HOME WITH SISTER IN [place] UNTIL DR. NUNEZ ALLOWS HER TO GO TO [place] WITH DAUGHTER AND SON IN [place] WHO IS A PHYSICAL THERAPIST. THEN PT'S PLAN IS TO EVENTUALLY GO BACK TO [place]. HER IS WITH HER IN [place] AND WILL BE AVAILABLE TO ASSIST WHEN NEED THROUGHOUT HER RECOVERY TIME. CM LEFT CONTACT INFORMATION AT BEDSIDE. CM WILL CONTINUE TO FOLLOW FOR DC NEEDS.
[2020-04-28 11:45] VITALS: BP 124/71
[2020-04-28] MEDS ORDERED: TORADOL ONE (11:58)
--- NOTE | 2020-04-28 12:20 | NUR ---
KETORLAC 30MG IV GIVEN AT THIS TIME FOR SUBJECTIVE PAIN LEVEL 10/10 LOCATED IN RIGHT KNEE. PATIENT DESCRIBES PAIN "SHOOTING, RADIATING, EXCRUCIATING PAIN." VITAL SIGNS WNL, NO S/S OF RESPIRATORY DISTRESS. CALL LIGHT IN REACH, BED IS LOW AND LOCKED. WILL CONTINUE TO MONITOR.
[2020-04-28] MEDS: TORADOL IV PRN ×2 (12:25→22:23)
--- NOTE | 2020-04-28 12:25 | NUR ---
PATIENT STILL VOICING INTRACTABLE PAIN. NOTIFIED, RECEIVED ORDERS FOR KETORLAC 30MG IV.
--- NOTE | 2020-04-28 14:03 | NUR ---
DIAZEPAM 5MG PO GIVEN AT THIS TIME FOR MUSCLE SPASMS IN RIGHT INCISION SITE. SITE IS FREE OF REDNESS OR HEAT. VITAL SIGNS WNL, NO S/S OF RESPIRATORY DISTRESS WITH EQUAL CHEST RISE/FALL. CALL LIGHT IN REACH, BED IS LOW AND LOCKED. WILL CONTINUE TO MONITOR.
[2020-04-28] MEDS: OFIRMEV IV SCH ×2 (14:29→23:47)
[2020-04-28] MEDS ORDERED: NORCO 10MG PO ONE ×2 (15:42→16:00)
--- NOTE | 2020-04-28 15:45 | NUR ---
CHARGE NURSE CONTACTED AT THIS TIME TO REPORT INTRACTABLE PAIN. RECEIVED ORDERS FOR ONE TIME DOSE OF NORCO 20MG AND XRAY OF HER RIGHT KNEE. NORCO 20MG PO GIVEN AT THIS TIME FOR SUBJECTIVE PAIN LEVEL OF 10/10. VITAL SIGNS WNL, NO S/S OF RESPIRATORY DISTRESS WITH EQUAL CHEST RISE/FALL. CALL LIGHT IN REACH, BED IS LOW AND LOCKED. WILL CONTINUE TO MONITOR PAIN.
[2020-04-28] MEDS ORDERED: NORCO 10MG PO PRN (16:00)
[2020-04-28] MEDS: NORCO 10MG PO PRN (16:07)
--- NOTE | 2020-04-28 16:34 | DIREP ---
PROCEDURE:XRAY KNEE 2 VWS-RT COMPARISON:[facility], CR, XRAY KNEE 1-2 VWS-RT, 04/27/2020, 03:37 PM INDICATIONS:severe pain s/p knee replacement FINDINGS: BONES:Normal. JOINTS:Total knee replacement. SOFT TISSUES:Anterior skin maliha. OTHER:No additional findings. CONCLUSION:Status post recent left total knee replacement, without plain film evidence of complications. No significant change as compared with 1 day prior. Dictated by: Ester Nelson III, MD on 04/28/2020 at 04:32 PM
[2020-04-28 16:51] VITALS: BP 87/40
--- NOTE | 2020-04-28 16:57 | NUR ---
REMOVED ODELL WRAP ON RIGHT KNEE INCISION, CUT SOFT ROLL AND GAUZE DOWN THE MIDDLE. REWRAPPED INCISION WITH NEW ODELL AND APPLIED ICE PACKS PER ORDERS. VITAL SIGNS WNL, EQUAL CHEST RISE/FALL. CALL LIGHT IN REACH, BED IS LOW AND LOCKED. WILL CONTINUE TO MONITOR.
[2020-04-28 20:10] VITALS: BP 111/66
[2020-04-28] MEDS ORDERED: NS 500ML 500 ML IV ONE (23:44)
[2020-04-29] MEDS: VALIUM PO PRN ×2 (00:08→08:32)
[2020-04-29 00:15] VITALS: BP 106/60
[2020-04-29 04:43] VITALS: BP 110/65
[2020-04-29 07:38] VITALS: BP 105/71
[2020-04-29] MEDS: OFIRMEV IV SCH ×3 (07:54→22:33)
[2020-04-29 08:18] LABS: RED CELL DISTRIBUTION WIDTH 12.4 % (11.5-14.5)
[2020-04-29] MEDS: XARELTO PO SCH (08:32)
[2020-04-29] MEDS: PEPCID PO SCH (08:32)
[2020-04-29] MEDS: NORCO 10MG PO PRN (08:32)
[2020-04-29] MEDS: COLACE PO SCH (08:32)
[2020-04-29] MEDS: CELEBREX PO SCH ×2 (08:33→20:56)
--- NOTE | 2020-04-29 09:03 | PRM.PN ---
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 Try to start PT Add gabapentin Patient History: Alzheimer's disease G8 MOTHER Asthma G8 FATHER Hypertension G8 FATHER No known health problems G8 BROTHER G8 SISTER G8 SISTER 19 CHILD No Family History of: Cerebrovascular disorder Chronic obstructive pulmonary disease Congestive heart failure Diabetes insipidus Diabetes mellitus Parkinson's disease VTE VTE Risk Total Score: >5 VTE Risk Score VTE Risk: Score 0-1 = Low Risk (Aggressive mobilization; early ambulation; no VTE prophylaxis required) Score 2: Moderate Risk (Intermittent/Pneumatic Compression Device OR Lovenox/Heparin/Coumadin) Score 3-4: High Risk (Intermittent/Pneumatic Compression Device AND Lovenox/Heparin/Coumadin) Score > or =5: Highest Risk (Intermittent/Pneumatic Compression Device AND Lovenox/Heparin/Coumadin) Review of Systems Allergies: Coded Allergies: Penicillins (Verified Allergy, Severe, Anaphylaxis Shock, 04/25/20) minocycline (Verified Allergy, Unknown, DIZZINESS, 04/25/20) Scheduled Ascorbic Acid (Vitamin C), 500 MG PO DAILY24 Aspirin (Aspir 81), 1 TAB PO QD, (Reported) Diclofenac Potassium (Diclofenac Potassium), 1 TAB PO BID, (Reported) Multivitamin (Multi Vitamin Daily), 1 EACH PO DAILY24 Omeprazole (Omeprazole), 1 CAP PO DAILY, (Reported) Vitamin A (Vitamin A), 8,000 UNIT PO DAILY24 Vitamin D3/Folic Acid (Dermacinrx Purefolix Tablet), 10,000 UNIT PO 5 X WEEK [Black Seed Oil], 1 CAP PEG DAILY24, (Reported) Objective Vitals and I/O Vital Sign - Last 24 Hours 04/28/20 04/28/20 04/28/20 04/28/20 11:45 16:22 16:51 20:10 Temp 97.9 98.3 98.1 Pulse 64 57 76 Resp 18 20 18 B/P (MAP) 124/71 (88) 87/40 (56) 111/66 (81) Pulse Ox 99 96 94 O2 Delivery Room Air Nasal Cannula Nasal Canula Room Air O2 Flow Rate 2.00 2.00 8/14/20 8/14/20 8/15/20 8/15/20 20:10 21:43 00:15 04:43 Temp 98.2 98.2 Pulse 57 66 68 Resp 20 18 18 B/P (MAP) 106/60 (75) 110/65 (80) Pulse Ox 96 95 94 O2 Delivery Nasal Cannula Room Air Room Air Room Air O2 Flow Rate 2.00 04/29/20 04/29/20 07:38 08:58 Temp 98.2 Pulse 73 78 Resp 18 20 B/P (MAP) 105/71 (82) Pulse Ox 93 96 O2 Delivery Room Air FiO2 21 Intake and Output 04/29/20 07:00 Intake Total 118 ml Output Total 1800 ml Balance -1682 ml All Results(Lab/Rad) Laboratory Tests Test 04/27/20 17:45 White Blood Count 9.3 10^3/uL Red Blood Count 3.65 10^6/uL Hemoglobin 11.6 g/dL Hematocrit 34.1 % Mean Corpuscular Volume 93.4 fL Mean Corpuscular Hemoglobin 31.8 pg Mean Corpuscular Hemoglobin Concent 34.0 g/dL Red Cell Distribution Width 12.4 % Platelet Count 240 10^3/uL Mean Platelet Volume 9.7 fL Current Medications Medications (Trade) Dose Ordered Sig/Donell Route PRN Reason Start Time Stop Time Status Last Admin Dose Admin Sodium Chloride 250 ml @ ud STK-MED ONCE IV 04/26/20 08:53 04/26/20 08:55 DC Vancomycin HCl 1 ml @ ud STK-MED ONCE .ROUTE 04/26/20 08:53 04/26/20 08:56 DC Mupirocin (Bactroban Ointment) 1 gm STK-MED ONCE TP 04/26/20 08:55 04/26/20 08:58 DC Vancomycin HCl 1 gm/Sodium Chloride 250 ml @ 175 mls/hr OT ONCE IV 04/27/20 06:00 04/27/20 07:25 UNV 04/27/20 10:20 Mupirocin (Bactroban) 1 gm OT ONCE TP 04/27/20 06:00 04/27/20 06:01 UNV Sodium Chloride (Sodium Chloride Irr Bottle) 1,000 ml STK-MED ONCE IR 04/27/20 07:10 04/27/20 07:13 DC Sterile Water (Water) 1,000 ml STK-MED ONCE .ROUTE 04/27/20 07:10 04/27/20 07:13 DC Sodium Chloride 100 ml @ ud STK-MED ONCE IV 04/27/20 07:10 04/27/20 07:13 DC Sodium Chloride 250 ml @ ud STK-MED ONCE IV 04/27/20 07:11 04/27/20 07:13 DC Sodium Chloride (NS 3000ml Irr) 3,000 ml STK-MED ONCE IR 04/27/20 07:11 04/27/20 07:14 DC Mupirocin (Bactroban Ointment) 1 gm OT ONCE TP 04/27/20 08:50 04/27/20 08:51 UNV Diazepam (Valium) 10 mg OT PRN PO ANXIETY 04/27/20 09:00 05/27/20 08:59 UNV 04/27/20 17:17 Ropivacaine (Naropin 0.2% 40 Mg/20 ml Vial) 2 mg STK-MED ONCE .ROUTE 04/27/20 11:42 04/27/20 11:44 DC Lidocaine HCl (Lidocaine 2% Vial) 500 mg STK-MED ONCE .ROUTE 04/27/20 11:42 04/27/20 11:44 DC Neostigmine Methylsulfate (Neostigmine) 10 mg STK-MED ONCE .ROUTE 04/27/20 11:42 04/27/20 11:44 DC Ketorolac Tromethamine (Toradol) 30 mg STK-MED ONCE .ROUTE 04/27/20 11:42 04/27/20 11:44 DC Ondansetron HCl (Zofran) 4 mg STK-MED ONCE .ROUTE 04/27/20 11:43 04/27/20 11:44 DC Dexamethasone Sodium Phosphate (Decadron) 10 mg STK-MED ONCE .ROUTE 04/27/20 11:43 04/27/20 11:44 DC Rocuronium [place] (Rocuronium Kingman) 50 mg STK-MED ONCE IV 04/27/20 11:43 04/27/20 11:45 DC Fentanyl Citrate (Sublimaze) 50 mcg STK-MED ONCE .ROUTE 04/27/20 11:43 04/27/20 11:45 DC Hydromorphone HCl (Dilaudid) 2 mg STK-MED ONCE .ROUTE 04/27/20 11:44 04/27/20 11:46 DC Propofol (Diprivan) 200 mg STK-MED ONCE IV 04/27/20 11:44 04/27/20 11:46 DC Tramadol HCl (Ultram) 50 mg Q4HR PO 04/27/20 16:00 05/27/20 15:59 UNV Tramadol HCl (Ultram) 100 mg Q4HR PRN PO PAIN 4 - 6 04/27/20 15:00 05/27/20 14:59 UNV 04/27/20 17:16 Rivaroxaban (Xarelto) 10 mg DAILY PO 04/28/20 09:00 05/28/20 08:59 UNV Docusate Sodium (Colace) 100 mg DAILY PO 04/28/20 09:00 05/28/20 08:59 UNV Throat Lozenges (Cepacol Sore Throat Lozenge) 1 each PRN PRN MM SORE THROAT 04/27/20 15:00 05/27/20 14:59 UNV Famotidine (Pepcid) 20 mg DAILY PO 04/28/20 09:00 05/28/20 08:59 UNV Celecoxib (Celebrex) 200 mg BID PO 04/27/20 21:00 05/27/20 20:59 UNV Vancomycin HCl 1 gm/Sodium Chloride 250 ml @ 175 mls/hr Q12H IV 04/27/20 15:00 04/28/20 16:26 UNV Acetaminophen (Tylenol) 1,000 mg Q6HR PO 04/27/20 18:00 05/27/20 17:59 UNV 04/27/20 18:48 Diazepam (Valium) 5 mg Q6HR PRN PO MUSCLE SPASM 04/27/20 15:00 05/27/20 14:59 UNV Hydromorphone HCl (Dilaudid) 2 mg Q6HR PRN IV PAIN 7 - 10 04/27/20 15:00 05/27/20 14:59 UNV Hydromorphone HCl (Dilaudid) 0.2 mg Q5M PRN IV PAIN 1 - 3 04/27/20 15:00 04/28/20 14:59 UNV Fentanyl Citrate (Sublimaze) 12.5 mcg Q5MIN PRN IV PAIN 04/27/20 15:00 04/28/20 14:59 UNV 04/27/20 14:53 Ondansetron HCl (Zofran) 4 mg OT PRN IV nausea 04/27/20 15:00 UNV Diphenhydramine HCl (Benadryl) 25 mg Q5MIN PRN IV NAUSEA / VOMITING 04/27/20 15:00 UNV Ephedrine Sulfate (Ephedrine Sulfate) 5 mg PRN PRN IV HYPOTENSION SBP <90, 04/27/20 15:00 UNV Meperidine HCl (Demerol) 12.5 mg Q5MIN PRN IV SHIVERING 04/27/20 15:00 05/27/20 14:59 UNV Albuterol Sulfate (Ventolin) 2.5 mg OT PRN IH wheezing 04/27/20 15:00 UNV Labetalol HCl (Trandate) 5 mg Q5MIN PRN IV HYPERTENSION 04/27/20 15:00 05/27/20 14:59 UNV Acetaminophen 100 ml @ ud STK-MED ONCE IV 04/27/20 14:47 04/27/20 14:49 DC Fentanyl Citrate (Sublimaze) 50 mcg STK-MED ONCE .ROUTE 04/27/20 14:48 04/27/20 14:50 DC Acetaminophen (Ofirmev) 1,000 mg OT ONCE IV 04/27/20 15:00 04/27/20 15:01 UNV Morphine Sulfate (Morphine Sulfate) 2 mg STK-MED ONCE .ROUTE 04/27/20 15:28 04/27/20 15:30 DC Course Sepsis Screening Results: Posi: NEGATIVE Sepsis Qualifier/Stage: NO DEFINITE RISK Vitals & review Data Vital Sign - Last 24 Hours 04/27/20 04/27/20 04/27/20 04/27/20 08:56 08:56 14:27 14:27 Temp 98.2 97.0 Pulse 84 69 Resp 16 16 B/P (MAP) 125/82 (96) 138/78 (98) Pulse Ox 98 96 O2 Delivery Room Air Room Air Non-Rebreather O2 Flow Rate 15 15 04/27/20 04/27/20 04/27/20 04/27/20 14:37 14:47 14:57 15:07 Temp 97.7 97.9 97.5 97.1 Pulse 55 64 62 57 Resp 17 18 18 18 B/P (MAP) 120/58 (78) 113/64 (80) 102/41 (61) 110/50 (70) Pulse Ox 100 100 98 99 O2 Delivery Non-Rebreather Non-Rebreather Room Air Room Air O2 Flow Rate 10 10 04/27/20 04/27/20 04/27/20 04/27/20 15:17 15:27 17:14 17:28 Temp 97.7 97.3 Pulse 49 58 56 Resp 17 17 17 B/P (MAP) 111/41 (64) 111/79 (90) Pulse Ox 100 98 98 100 O2 Delivery Room Air Room Air Nasal Cannula O2 Flow Rate 2.00 04/27/20 04/27/20 04/27/20 04/27/20 18:37 18:38 18:41 19:08 Temp 98.0 Pulse 70 Resp 18 B/P (MAP) 104/65 (78) Pulse Ox 99 O2 Delivery Room Air Room Air Nasal Cannula O2 Flow Rate 2.00 Laboratory Tests Test 04/27/20 17:45 White Blood Count 9.3 10^3/uL Red Blood Count 3.65 10^6/uL Hemoglobin 11.6 g/dL Hematocrit 34.1 % Mean Corpuscular Volume 93.4 fL Mean Corpuscular Hemoglobin 31.8 pg Mean Corpuscular Hemoglobin Concent 34.0 g/dL Red Cell Distribution Width 12.4 % Platelet Count 240 10^3/uL Mean Platelet Volume 9.7 fL Current Medications Medications (Trade) Dose Ordered Sig/Odnell PRN Reason Start Time Stop Time Status Last Admin Acetaminophen (Tylenol) 1,000 mg Q6HR 04/27/20 18:00 05/27/20 17:59 UNV 04/27/20 18:48 Albuterol Sulfate (Ventolin) 2.5 mg OT PRN wheezing 04/27/20 15:00 UNV Celecoxib (Celebrex) 200 mg BID 04/27/20 21:00 05/27/20 20:59 UNV Diazepam (Valium) 5 mg Q6HR PRN MUSCLE SPASM 04/27/20 15:00 05/27/20 14:59 UNV Diazepam (Valium) 10 mg OT PRN ANXIETY 04/27/20 09:00 05/27/20 08:59 UNV 04/27/20 17:17 Diphenhydramine HCl (Benadryl) 25 mg Q5MIN PRN NAUSEA / VOMITING 04/27/20 15:00 UNV Docusate Sodium (Colace) 100 mg DAILY 04/28/20 09:00 05/28/20 08:59 UNV Ephedrine Sulfate (Ephedrine Sulfate) 5 mg PRN PRN HYPOTENSION SBP <90, 04/27/20 15:00 UNV Famotidine (Pepcid) 20 mg DAILY 04/28/20 09:00 05/28/20 08:59 UNV Fentanyl Citrate (Sublimaze) 12.5 mcg Q5MIN PRN PAIN 04/27/20 15:00 04/28/20 14:59 UNV 04/27/20 14:53 Hydromorphone HCl (Dilaudid) 0.2 mg Q5M PRN PAIN 1 - 3 04/27/20 15:00 04/28/20 14:59 UNV Hydromorphone HCl (Dilaudid) 2 mg Q6HR PRN PAIN 7 - 10 04/27/20 15:00 05/27/20 14:59 UNV Labetalol HCl (Trandate) 5 mg Q5MIN PRN HYPERTENSION 04/27/20 15:00 05/27/20 14:59 UNV Meperidine HCl (Demerol) 12.5 mg Q5MIN PRN SHIVERING 04/27/20 15:00 05/27/20 14:59 UNV Ondansetron HCl (Zofran) 4 mg OT PRN nausea 04/27/20 15:00 UNV Rivaroxaban (Xarelto) 10 mg DAILY 04/28/20 09:00 05/28/20 08:59 UNV Throat Lozenges (Cepacol Sore Throat Lozenge) 1 each PRN PRN SORE THROAT 04/27/20 15:00 05/27/20 14:59 UNV Tramadol HCl (Ultram) 50 mg Q4HR 04/27/20 16:00 05/27/20 15:59 UNV Tramadol HCl (Ultram) 100 mg Q4HR PRN PAIN 4 - 6 04/27/20 15:00 05/27/20 14:59 UNV 04/27/20 17:16 Vancomycin HCl 1 gm/Sodium Chloride 250 ml @ 175 mls/hr Q12H 04/27/20 15:00 04/28/20 16:26 UNV LEVEL 1 SEPSIS INFECTION CRITE: ABX Therapy, Recent Invasive Procedure LEVEL 2-SIRS (LIST ALL THAT AP: None/Not assessed Cardiovascular Evidence: Not Assessed or None Hematologic Evidence: None/Not assessed Hepatic Evidence: None/Not assessed Metabolic Evidence: None/Not assessed Neurological Evidence: None/Not assessed Respiratory Evidence: None/Not assessed Renal Evidence: None/Not assessed O2 Sat by Pulse Oximetry: 96 Oxygen Flow Rate: 2.00 ARMANDO NUNEZ MD Apr 29, 2020 09:03
[2020-04-29] MEDS: DILAUDID IV PRN ×2 (10:53→18:02)
--- NOTE | 2020-04-29 11:25 | NUR ---
DILAUDED 2MG IV GIVEN AT THIS TIME FOR SUBJECTIVE PAIN LEVEL OF 10/10 IN RIGHT KNEE. PATIENT STATES HER "KNEE IS ON FIRE." VS WNL, NO S/S OF RESPIRATORY DISTRESS. CALL LIGHT IN REACH, BED IS LOW AND LOCKED. WILL CONTINUE TO MONITOR.
[2020-04-29] MEDS: NEURONTIN PO SCH ×2 (14:21→20:56)
[2020-04-29] MEDS: TORADOL IV PRN (14:21)
[2020-04-29 17:44] VITALS: BP 110/68
--- NOTE | 2020-04-29 18:14 | NUR ---
DILAUDED 2MG IV ADMINISTERED AT THIS TIME FOR SUBJECTIVE PAIN LEVEL 7/10 IN RIGHT KNEE. CALL LIGHT IN REACH, BED IS LOW AND LOCKED. WILL CONTINUE TO MONITOR.
[2020-04-29 20:30] VITALS: BP 105/59
[2020-04-30] MEDS: TORADOL IV PRN ×3 (00:06→18:20)
[2020-04-30 00:50] VITALS: BP 119/63
[2020-04-30 04:50] VITALS: BP 120/64
[2020-04-30] MEDS: OFIRMEV IV SCH ×3 (05:37→22:36)
[2020-04-30 07:27] VITALS: BP 122/68
[2020-04-30 09:34] LABS: MEAN CORP HGB 31.6 pg (26-34); RED CELL DISTRIBUTION WIDTH 12.3 % (11.5-14.5)
[2020-04-30] MEDS: CELEBREX PO SCH ×2 (09:43→19:57)
[2020-04-30] MEDS: PEPCID PO SCH (09:43)
[2020-04-30] MEDS: COLACE PO SCH (09:44)
[2020-04-30] MEDS: NORCO 10MG PO PRN (09:44)
[2020-04-30] MEDS: NEURONTIN PO SCH ×3 (09:44→19:57)
[2020-04-30] MEDS: XARELTO PO SCH (09:44)
[2020-04-30 12:57] VITALS: BP 128/71
--- NOTE | 2020-04-30 13:36 | PRM.PN ---
Subjective Subjective Date: Apr 30, 2020 Time: 13:35 Subjective Pain better today More ambulatory VSS HGB 11 DC julito Adjust pain meds Patient History: Alzheimer's disease G8 MOTHER Asthma G8 FATHER Hypertension G8 FATHER No known health problems G8 BROTHER G8 SISTER G8 SISTER 19 CHILD No Family History of: Cerebrovascular disorder Chronic obstructive pulmonary disease Congestive heart failure Diabetes insipidus Diabetes mellitus Parkinson's disease VTE VTE Risk Total Score: >5 VTE Risk Score VTE Risk: Score 0-1 = Low Risk (Aggressive mobilization; early ambulation; no VTE prophylaxis required) Score 2: Moderate Risk (Intermittent/Pneumatic Compression Device OR Lovenox/Heparin/Coumadin) Score 3-4: High Risk (Intermittent/Pneumatic Compression Device AND Lovenox/Heparin/Coumadin) Score > or =5: Highest Risk (Intermittent/Pneumatic Compression Device AND Lovenox/Heparin/Coumadin) Review of Systems Allergies: Coded Allergies: Penicillins (Verified Allergy, Severe, Anaphylaxis Shock, 04/25/20) minocycline (Verified Allergy, Unknown, DIZZINESS, 04/25/20) Scheduled Ascorbic Acid (Vitamin C), 500 MG PO DAILY24 Aspirin (Aspir 81), 1 TAB PO QD, (Reported) Diclofenac Potassium (Diclofenac Potassium), 1 TAB PO BID, (Reported) Multivitamin (Multi Vitamin Daily), 1 EACH PO DAILY24 Omeprazole (Omeprazole), 1 CAP PO DAILY, (Reported) Vitamin A (Vitamin A), 8,000 UNIT PO DAILY24 Vitamin D3/Folic Acid (Dermacinrx Purefolix Tablet), 10,000 UNIT PO 5 X WEEK [Black Seed Oil], 1 CAP PEG DAILY24, (Reported) Objective Vitals and I/O Vital Sign - Last 24 Hours 04/29/20 04/29/20 04/29/20 04/29/20 17:44 20:30 20:30 21:43 Temp 98.6 98.9 Pulse 66 77 63 Resp 18 16 18 B/P (MAP) 110/68 (82) 105/59 (74) Pulse Ox 93 98 92 O2 Delivery Room Air Room Air Room Air FiO2 21 04/30/20 04/30/20 04/30/20 04/30/20 00:50 04:50 06:04 07:27 Temp 98.3 97.9 98.8 Pulse 83 80 75 Resp 16 17 16 B/P (MAP) 119/63 (81) 120/64 (82) 122/68 (86) Pulse Ox 98 96 94 O2 Delivery Room Air Room Air Room Air 04/30/20 04/30/20 04/30/20 04/30/20 07:44 08:18 08:20 12:57 Temp 97.7 Pulse 90 70 Resp 18 16 18 B/P (MAP) 128/71 (90) Pulse Ox 95 95 100 O2 Delivery Room Air Room Air FiO2 21 Intake and Output 04/30/20 07:00 Intake Total 1364 ml Output Total 4400 ml Balance -3036 ml All Results(Lab/Rad) Laboratory Tests Test 04/27/20 17:45 White Blood Count 9.3 10^3/uL Red Blood Count 3.65 10^6/uL Hemoglobin 11.6 g/dL Hematocrit 34.1 % Mean Corpuscular Volume 93.4 fL Mean Corpuscular Hemoglobin 31.8 pg Mean Corpuscular Hemoglobin Concent 34.0 g/dL Red Cell Distribution Width 12.4 % Platelet Count 240 10^3/uL Mean Platelet Volume 9.7 fL Current Medications Medications (Trade) Dose Ordered Sig/Donell Route PRN Reason Start Time Stop Time Status Last Admin Dose Admin Sodium Chloride 250 ml @ ud STK-MED ONCE IV 04/26/20 08:53 04/26/20 08:55 DC Vancomycin HCl 1 ml @ ud STK-MED ONCE .ROUTE 04/26/20 08:53 04/26/20 08:56 DC Mupirocin (Bactroban Ointment) 1 gm STK-MED ONCE TP 04/26/20 08:55 04/26/20 08:58 DC Vancomycin HCl 1 gm/Sodium Chloride 250 ml @ 175 mls/hr OT ONCE IV 04/27/20 06:00 04/27/20 07:25 UNV 04/27/20 10:20 Mupirocin (Bactroban) 1 gm OT ONCE TP 04/27/20 06:00 04/27/20 06:01 UNV Sodium Chloride (Sodium Chloride Irr Bottle) 1,000 ml STK-MED ONCE IR 04/27/20 07:10 04/27/20 07:13 DC Sterile Water (Water) 1,000 ml STK-MED ONCE .ROUTE 04/27/20 07:10 04/27/20 07:13 DC Sodium Chloride 100 ml @ ud STK-MED ONCE IV 04/27/20 07:10 04/27/20 07:13 DC Sodium Chloride 250 ml @ ud STK-MED ONCE IV 04/27/20 07:11 04/27/20 07:13 DC Sodium Chloride (NS 3000ml Irr) 3,000 ml STK-MED ONCE IR 04/27/20 07:11 04/27/20 07:14 DC Mupirocin (Bactroban Ointment) 1 gm OT ONCE TP 04/27/20 08:50 04/27/20 08:51 UNV Diazepam (Valium) 10 mg OT PRN PO ANXIETY 04/27/20 09:00 05/27/20 08:59 UNV 04/27/20 17:17 Ropivacaine (Naropin 0.2% 40 Mg/20 ml Vial) 2 mg STK-MED ONCE .ROUTE 04/27/20 11:42 04/27/20 11:44 DC Lidocaine HCl (Lidocaine 2% Vial) 500 mg STK-MED ONCE .ROUTE 04/27/20 11:42 04/27/20 11:44 DC Neostigmine Methylsulfate (Neostigmine) 10 mg STK-MED ONCE .ROUTE 04/27/20 11:42 04/27/20 11:44 DC Ketorolac Tromethamine (Toradol) 30 mg STK-MED ONCE .ROUTE 04/27/20 11:42 04/27/20 11:44 DC Ondansetron HCl (Zofran) 4 mg STK-MED ONCE .ROUTE 04/27/20 11:43 04/27/20 11:44 DC Dexamethasone Sodium Phosphate (Decadron) 10 mg STK-MED ONCE .ROUTE 04/27/20 11:43 04/27/20 11:44 DC Rocuronium [place]hen[place] (Rocuronium [place]henry) 50 mg STK-MED ONCE IV 04/27/20 11:43 04/27/20 11:45 DC Fentanyl Citrate (Sublimaze) 50 mcg STK-MED ONCE .ROUTE 04/27/20 11:43 04/27/20 11:45 DC Hydromorphone HCl (Dilaudid) 2 mg STK-MED ONCE .ROUTE 04/27/20 11:44 04/27/20 11:46 DC Propofol (Diprivan) 200 mg STK-MED ONCE IV 04/27/20 11:44 04/27/20 11:46 DC Tramadol HCl (Ultram) 50 mg Q4HR PO 04/27/20 16:00 05/27/20 15:59 UNV Tramadol HCl (Ultram) 100 mg Q4HR PRN PO PAIN 4 - 6 04/27/20 15:00 05/27/20 14:59 UNV 04/27/20 17:16 Rivaroxaban (Xarelto) 10 mg DAILY PO 04/28/20 09:00 05/28/20 08:59 UNV Docusate Sodium (Colace) 100 mg DAILY PO 04/28/20 09:00 05/28/20 08:59 UNV Throat Lozenges (Cepacol Sore Throat Lozenge) 1 each PRN PRN MM SORE THROAT 04/27/20 15:00 05/27/20 14:59 UNV Famotidine (Pepcid) 20 mg DAILY PO 04/28/20 09:00 05/28/20 08:59 UNV Celecoxib (Celebrex) 200 mg BID PO 04/27/20 21:00 05/27/20 20:59 UNV Vancomycin HCl 1 gm/Sodium Chloride 250 ml @ 175 mls/hr Q12H IV 04/27/20 15:00 04/28/20 16:26 UNV Acetaminophen (Tylenol) 1,000 mg Q6HR PO 04/27/20 18:00 05/27/20 17:59 UNV 04/27/20 18:48 Diazepam (Valium) 5 mg Q6HR PRN PO MUSCLE SPASM 04/27/20 15:00 05/27/20 14:59 UNV Hydromorphone HCl (Dilaudid) 2 mg Q6HR PRN IV PAIN 7 - 10 04/27/20 15:00 05/27/20 14:59 UNV Hydromorphone HCl (Dilaudid) 0.2 mg Q5M PRN IV PAIN 1 - 3 04/27/20 15:00 04/28/20 14:59 UNV Fentanyl Citrate (Sublimaze) 12.5 mcg Q5MIN PRN IV PAIN 04/27/20 15:00 04/28/20 14:59 UNV 04/27/20 14:53 Ondansetron HCl (Zofran) 4 mg OT PRN IV nausea 04/27/20 15:00 UNV Diphenhydramine HCl (Benadryl) 25 mg Q5MIN PRN IV NAUSEA / VOMITING 04/27/20 15:00 UNV Ephedrine Sulfate (Ephedrine Sulfate) 5 mg PRN PRN IV HYPOTENSION SBP <90, 04/27/20 15:00 UNV Meperidine HCl (Demerol) 12.5 mg Q5MIN PRN IV SHIVERING 04/27/20 15:00 05/27/20 14:59 UNV Albuterol Sulfate (Ventolin) 2.5 mg OT PRN IH wheezing 04/27/20 15:00 UNV Labetalol HCl (Trandate) 5 mg Q5MIN PRN IV HYPERTENSION 04/27/20 15:00 05/27/20 14:59 UNV Acetaminophen 100 ml @ ud STK-MED ONCE IV 04/27/20 14:47 04/27/20 14:49 DC Fentanyl Citrate (Sublimaze) 50 mcg STK-MED ONCE .ROUTE 04/27/20 14:48 04/27/20 14:50 DC Acetaminophen (Ofirmev) 1,000 mg OT ONCE IV 04/27/20 15:00 04/27/20 15:01 UNV Morphine Sulfate (Morphine Sulfate) 2 mg STK-MED ONCE .ROUTE 04/27/20 15:28 04/27/20 15:30 DC Course Sepsis Screening Results: Posi: NEGATIVE Sepsis Qualifier/Stage: NO DEFINITE RISK Vitals & review Data Vital Sign - Last 24 Hours 04/27/20 04/27/20 04/27/20 04/27/20 08:56 08:56 14:27 14:27 Temp 98.2 97.0 Pulse 84 69 Resp 16 16 B/P (MAP) 125/82 (96) 138/78 (98) Pulse Ox 98 96 O2 Delivery Room Air Room Air Non-Rebreather O2 Flow Rate 15 15 04/27/20 04/27/20 04/27/20 04/27/20 14:37 14:47 14:57 15:07 Temp 97.7 97.9 97.5 97.1 Pulse 55 64 62 57 Resp 17 18 18 18 B/P (MAP) 120/58 (78) 113/64 (80) 102/41 (61) 110/50 (70) Pulse Ox 100 100 98 99 O2 Delivery Non-Rebreather Non-Rebreather Room Air Room Air O2 Flow Rate 10 10 04/27/20 04/27/20 04/27/20 04/27/20 15:17 15:27 17:14 17:28 Temp 97.7 97.3 Pulse 49 58 56 Resp 17 17 17 B/P (MAP) 111/41 (64) 111/79 (90) Pulse Ox 100 98 98 100 O2 Delivery Room Air Room Air Nasal Cannula O2 Flow Rate 2.00 04/27/20 04/27/20 04/27/20 04/27/20 18:37 18:38 18:41 19:08 Temp 98.0 Pulse 70 Resp 18 B/P (MAP) 104/65 (78) Pulse Ox 99 O2 Delivery Room Air Room Air Nasal Cannula O2 Flow Rate 2.00 Laboratory Tests Test 04/27/20 17:45 White Blood Count 9.3 10^3/uL Red Blood Count 3.65 10^6/uL Hemoglobin 11.6 g/dL Hematocrit 34.1 % Mean Corpuscular Volume 93.4 fL Mean Corpuscular Hemoglobin 31.8 pg Mean Corpuscular Hemoglobin Concent 34.0 g/dL Red Cell Distribution Width 12.4 % Platelet Count 240 10^3/uL Mean Platelet Volume 9.7 fL Current Medications Medications (Trade) Dose Ordered Sig/Donell PRN Reason Start Time Stop Time Status Last Admin Acetaminophen (Tylenol) 1,000 mg Q6HR 04/27/20 18:00 05/27/20 17:59 UNV 04/27/20 18:48 Albuterol Sulfate (Ventolin) 2.5 mg OT PRN wheezing 04/27/20 15:00 UNV Celecoxib (Celebrex) 200 mg BID 04/27/20 21:00 05/27/20 20:59 UNV Diazepam (Valium) 5 mg Q6HR PRN MUSCLE SPASM 04/27/20 15:00 05/27/20 14:59 UNV Diazepam (Valium) 10 mg OT PRN ANXIETY 04/27/20 09:00 05/27/20 08:59 UNV 04/27/20 17:17 Diphenhydramine HCl (Benadryl) 25 mg Q5MIN PRN NAUSEA / VOMITING 04/27/20 15:00 UNV Docusate Sodium (Colace) 100 mg DAILY 04/28/20 09:00 05/28/20 08:59 UNV Ephedrine Sulfate (Ephedrine Sulfate) 5 mg PRN PRN HYPOTENSION SBP <90, 04/27/20 15:00 UNV Famotidine (Pepcid) 20 mg DAILY 04/28/20 09:00 05/28/20 08:59 UNV Fentanyl Citrate (Sublimaze) 12.5 mcg Q5MIN PRN PAIN 04/27/20 15:00 04/28/20 14:59 UNV 04/27/20 14:53 Hydromorphone HCl (Dilaudid) 0.2 mg Q5M PRN PAIN 1 - 3 04/27/20 15:00 04/28/20 14:59 UNV Hydromorphone HCl (Dilaudid) 2 mg Q6HR PRN PAIN 7 - 10 04/27/20 15:00 05/27/20 14:59 UNV Labetalol HCl (Trandate) 5 mg Q5MIN PRN HYPERTENSION 04/27/20 15:00 05/27/20 14:59 UNV Meperidine HCl (Demerol) 12.5 mg Q5MIN PRN SHIVERING 04/27/20 15:00 05/27/20 14:59 UNV Ondansetron HCl (Zofran) 4 mg OT PRN nausea 04/27/20 15:00 UNV Rivaroxaban (Xarelto) 10 mg DAILY 04/28/20 09:00 05/28/20 08:59 UNV Throat Lozenges (Cepacol Sore Throat Lozenge) 1 each PRN PRN SORE THROAT 04/27/20 15:00 05/27/20 14:59 UNV Tramadol HCl (Ultram) 50 mg Q4HR 04/27/20 16:00 05/27/20 15:59 UNV Tramadol HCl (Ultram) 100 mg Q4HR PRN PAIN 4 - 6 04/27/20 15:00 05/27/20 14:59 UNV 04/27/20 17:16 Vancomycin HCl 1 gm/Sodium Chloride 250 ml @ 175 mls/hr Q12H 04/27/20 15:00 04/28/20 16:26 UNV LEVEL 1 SEPSIS INFECTION CRITE: Recent Invasive Procedure LEVEL 2-SIRS (LIST ALL THAT AP: None/Not assessed Cardiovascular Evidence: Not Assessed or None Hematologic Evidence: None/Not assessed Hepatic Evidence: None/Not assessed Metabolic Evidence: None/Not assessed Neurological Evidence: None/Not assessed Respiratory Evidence: None/Not assessed Renal Evidence: None/Not assessed O2 Sat by Pulse Oximetry: 100 Oxygen Flow Rate: 2.00 ARMANDO NUNEZ MD Apr 30, 2020 13:36
--- NOTE | 2020-04-30 14:00 | NUR ---
Lang DC via aseptic technique at this time per Dr orders. Pt had no s/s of acute distress at this time. 1000 output noted. Pt due to void at 0000
[2020-04-30] MEDS: ULTRAM PO SCH ×3 (16:39→23:37)
[2020-04-30 17:11] VITALS: BP 126/74
[2020-04-30] MEDS: VALIUM PO PRN (19:30)
[2020-04-30 19:51] VITALS: BP 132/73
--- NOTE | 2020-05-01 02:00 | NUR ---
CPM machine Pt tolerated cpm machine for 2 hours on my shift. Medicated with PRN pain medications prior to use. Tolerated well. Understood rationale for use.
[2020-05-01 02:09] VITALS: BP 137/83
--- NOTE | 2020-05-01 03:15 | NUR ---
Ambulation Pt ambulated 20ft in hallway via walker with assistance x1. Tolerated ambulation well. Provided PRN pain medication per eMAR for aching pain to RLE. Assisted back into bed. Pillows x4, to support position. Pulses to lower extremities, x2, strong. States comfortable at this time. Will continue to monitor.
[2020-05-01] MEDS: ULTRAM PO SCH ×7 (03:23→23:56)
[2020-05-01] MEDS: VALIUM PO PRN ×3 (04:11→21:29)
[2020-05-01] MEDS: OFIRMEV IV SCH ×4 (06:22→22:37)
[2020-05-01 07:00] VITALS: BP 111/69
[2020-05-01] MEDS: CELEBREX PO SCH ×2 (08:42→21:28)
[2020-05-01] MEDS: COLACE PO SCH (08:42)
[2020-05-01] MEDS: NEURONTIN PO SCH ×3 (08:43→21:29)
[2020-05-01] MEDS: XARELTO PO SCH (08:43)
[2020-05-01] MEDS: PEPCID PO SCH (08:43)
[2020-05-01] MEDS: TORADOL IV PRN (09:06)
--- NOTE | 2020-05-01 10:27 | PRM.PN ---
Subjective Subjective Date: May 01, 2020 Time: 10:26 Subjective Still with significant pain Unable to weight bear VSS NVM+ Cont with PT and pain control Patient History: Alzheimer's disease G8 MOTHER Asthma G8 FATHER Hypertension G8 FATHER No known health problems G8 BROTHER G8 SISTER G8 SISTER 19 CHILD No Family History of: Cerebrovascular disorder Chronic obstructive pulmonary disease Congestive heart failure Diabetes insipidus Diabetes mellitus Parkinson's disease VTE VTE Risk Total Score: >5 VTE Risk Score VTE Risk: Score 0-1 = Low Risk (Aggressive mobilization; early ambulation; no VTE prophylaxis required) Score 2: Moderate Risk (Intermittent/Pneumatic Compression Device OR Lovenox/Heparin/Coumadin) Score 3-4: High Risk (Intermittent/Pneumatic Compression Device AND Lovenox/Heparin/Coumadin) Score > or =5: Highest Risk (Intermittent/Pneumatic Compression Device AND Lovenox/Heparin/Coumadin) Review of Systems Allergies: Coded Allergies: Penicillins (Verified Allergy, Severe, Anaphylaxis Shock, 04/25/20) minocycline (Verified Allergy, Unknown, DIZZINESS, 04/25/20) Scheduled Ascorbic Acid (Vitamin C), 500 MG PO DAILY24 Aspirin (Aspir 81), 1 TAB PO QD, (Reported) Diclofenac Potassium (Diclofenac Potassium), 1 TAB PO BID, (Reported) Multivitamin (Multi Vitamin Daily), 1 EACH PO DAILY24 Omeprazole (Omeprazole), 1 CAP PO DAILY, (Reported) Vitamin A (Vitamin A), 8,000 UNIT PO DAILY24 Vitamin D3/Folic Acid (Dermacinrx Purefolix Tablet), 10,000 UNIT PO 5 X WEEK [Black Seed Oil], 1 CAP PEG DAILY24, (Reported) Objective Vitals and I/O Vital Sign - Last 24 Hours 04/30/20 04/30/20 04/30/20 04/30/20 12:57 17:10 17:11 19:51 Temp 97.7 97.7 98.0 Pulse 70 91 83 72 Resp 18 18 18 18 B/P (MAP) 128/71 (90) 126/74 (91) 132/73 (92) Pulse Ox 100 94 97 99 O2 Delivery Room Air FiO2 21 05/01/20 05/01/20 05/01/20 01:18 02:09 09:30 Temp 97.7 Pulse 70 70 Resp 17 18 B/P (MAP) 137/83 (101) Pulse Ox 97 98 O2 Delivery Room Air Room Air Room Air FiO2 21 Intake and Output 05/01/20 07:00 Intake Total 456 ml Output Total 1000 ml Balance -544 ml All Results(Lab/Rad) Laboratory Tests Test 04/27/20 17:45 White Blood Count 9.3 10^3/uL Red Blood Count 3.65 10^6/uL Hemoglobin 11.6 g/dL Hematocrit 34.1 % Mean Corpuscular Volume 93.4 fL Mean Corpuscular Hemoglobin 31.8 pg Mean Corpuscular Hemoglobin Concent 34.0 g/dL Red Cell Distribution Width 12.4 % Platelet Count 240 10^3/uL Mean Platelet Volume 9.7 fL Current Medications Medications (Trade) Dose Ordered Sig/Donell Route PRN Reason Start Time Stop Time Status Last Admin Dose Admin Sodium Chloride 250 ml @ ud STK-MED ONCE IV 04/26/20 08:53 04/26/20 08:55 DC Vancomycin HCl 1 ml @ ud STK-MED ONCE .ROUTE 04/26/20 08:53 04/26/20 08:56 DC Mupirocin (Bactroban Ointment) 1 gm STK-MED ONCE TP 04/26/20 08:55 04/26/20 08:58 DC Vancomycin HCl 1 gm/Sodium Chloride 250 ml @ 175 mls/hr OT ONCE IV 04/27/20 06:00 04/27/20 07:25 UNV 04/27/20 10:20 Mupirocin (Bactroban) 1 gm OT ONCE TP 04/27/20 06:00 04/27/20 06:01 UNV Sodium Chloride (Sodium Chloride Irr Bottle) 1,000 ml STK-MED ONCE IR 04/27/20 07:10 04/27/20 07:13 DC Sterile Water (Water) 1,000 ml STK-MED ONCE .ROUTE 04/27/20 07:10 04/27/20 07:13 DC Sodium Chloride 100 ml @ ud STK-MED ONCE IV 04/27/20 07:10 04/27/20 07:13 DC Sodium Chloride 250 ml @ ud STK-MED ONCE IV 04/27/20 07:11 04/27/20 07:13 DC Sodium Chloride (NS 3000ml Irr) 3,000 ml STK-MED ONCE IR 04/27/20 07:11 04/27/20 07:14 DC Mupirocin (Bactroban Ointment) 1 gm OT ONCE TP 04/27/20 08:50 04/27/20 08:51 UNV Diazepam (Valium) 10 mg OT PRN PO ANXIETY 04/27/20 09:00 05/27/20 08:59 UNV 04/27/20 17:17 Ropivacaine (Naropin 0.2% 40 Mg/20 ml Vial) 2 mg STK-MED ONCE .ROUTE 04/27/20 11:42 04/27/20 11:44 DC Lidocaine HCl (Lidocaine 2% Vial) 500 mg STK-MED ONCE .ROUTE 04/27/20 11:42 04/27/20 11:44 DC Neostigmine Methylsulfate (Neostigmine) 10 mg STK-MED ONCE .ROUTE 04/27/20 11:42 04/27/20 11:44 DC Ketorolac Tromethamine (Toradol) 30 mg STK-MED ONCE .ROUTE 04/27/20 11:42 04/27/20 11:44 DC Ondansetron HCl (Zofran) 4 mg STK-MED ONCE .ROUTE 04/27/20 11:43 04/27/20 11:44 DC Dexamethasone Sodium Phosphate (Decadron) 10 mg STK-MED ONCE .ROUTE 04/27/20 11:43 04/27/20 11:44 DC Rocuronium Gary (Rocuronium Gary) 50 mg STK-MED ONCE IV 04/27/20 11:43 04/27/20 11:45 DC Fentanyl Citrate (Sublimaze) 50 mcg STK-MED ONCE .ROUTE 04/27/20 11:43 04/27/20 11:45 DC Hydromorphone HCl (Dilaudid) 2 mg STK-MED ONCE .ROUTE 04/27/20 11:44 04/27/20 11:46 DC Propofol (Diprivan) 200 mg STK-MED ONCE IV 04/27/20 11:44 04/27/20 11:46 DC Tramadol HCl (Ultram) 50 mg Q4HR PO 04/27/20 16:00 05/27/20 15:59 UNV Tramadol HCl (Ultram) 100 mg Q4HR PRN PO PAIN 4 - 6 04/27/20 15:00 05/27/20 14:59 UNV 04/27/20 17:16 Rivaroxaban (Xarelto) 10 mg DAILY PO 04/28/20 09:00 05/28/20 08:59 UNV Docusate Sodium (Colace) 100 mg DAILY PO 04/28/20 09:00 05/28/20 08:59 UNV Throat Lozenges (Cepacol Sore Throat Lozenge) 1 each PRN PRN MM SORE THROAT 04/27/20 15:00 05/27/20 14:59 UNV Famotidine (Pepcid) 20 mg DAILY PO 04/28/20 09:00 05/28/20 08:59 UNV Celecoxib (Celebrex) 200 mg BID PO 04/27/20 21:00 05/27/20 20:59 UNV Vancomycin HCl 1 gm/Sodium Chloride 250 ml @ 175 mls/hr Q12H IV 04/27/20 15:00 04/28/20 16:26 UNV Acetaminophen (Tylenol) 1,000 mg Q6HR PO 04/27/20 18:00 05/27/20 17:59 UNV 04/27/20 18:48 Diazepam (Valium) 5 mg Q6HR PRN PO MUSCLE SPASM 04/27/20 15:00 05/27/20 14:59 UNV Hydromorphone HCl (Dilaudid) 2 mg Q6HR PRN IV PAIN 7 - 10 04/27/20 15:00 05/27/20 14:59 UNV Hydromorphone HCl (Dilaudid) 0.2 mg Q5M PRN IV PAIN 1 - 3 04/27/20 15:00 04/28/20 14:59 UNV Fentanyl Citrate (Sublimaze) 12.5 mcg Q5MIN PRN IV PAIN 04/27/20 15:00 04/28/20 14:59 UNV 04/27/20 14:53 Ondansetron HCl (Zofran) 4 mg OT PRN IV nausea 04/27/20 15:00 UNV Diphenhydramine HCl (Benadryl) 25 mg Q5MIN PRN IV NAUSEA / VOMITING 04/27/20 15:00 UNV Ephedrine Sulfate (Ephedrine Sulfate) 5 mg PRN PRN IV HYPOTENSION SBP <90, 04/27/20 15:00 UNV Meperidine HCl (Demerol) 12.5 mg Q5MIN PRN IV SHIVERING 04/27/20 15:00 05/27/20 14:59 UNV Albuterol Sulfate (Ventolin) 2.5 mg OT PRN IH wheezing 04/27/20 15:00 UNV Labetalol HCl (Trandate) 5 mg Q5MIN PRN IV HYPERTENSION 04/27/20 15:00 05/27/20 14:59 UNV Acetaminophen 100 ml @ ud STK-MED ONCE IV 04/27/20 14:47 04/27/20 14:49 DC Fentanyl Citrate (Sublimaze) 50 mcg STK-MED ONCE .ROUTE 04/27/20 14:48 04/27/20 14:50 DC Acetaminophen (Ofirmev) 1,000 mg OT ONCE IV 04/27/20 15:00 04/27/20 15:01 UNV Morphine Sulfate (Morphine Sulfate) 2 mg STK-MED ONCE .ROUTE 04/27/20 15:28 04/27/20 15:30 DC Course Sepsis Screening Results: Posi: NEGATIVE Sepsis Qualifier/Stage: NO DEFINITE RISK Vitals & review Data Vital Sign - Last 24 Hours 04/27/20 04/27/20 04/27/20 04/27/20 08:56 08:56 14:27 14:27 Temp 98.2 97.0 Pulse 84 69 Resp 16 16 B/P (MAP) 125/82 (96) 138/78 (98) Pulse Ox 98 96 O2 Delivery Room Air Room Air Non-Rebreather O2 Flow Rate 15 15 04/27/20 04/27/20 04/27/20 04/27/20 14:37 14:47 14:57 15:07 Temp 97.7 97.9 97.5 97.1 Pulse 55 64 62 57 Resp 17 18 18 18 B/P (MAP) 120/58 (78) 113/64 (80) 102/41 (61) 110/50 (70) Pulse Ox 100 100 98 99 O2 Delivery Non-Rebreather Non-Rebreather Room Air Room Air O2 Flow Rate 10 10 04/27/20 04/27/20 04/27/20 04/27/20 15:17 15:27 17:14 17:28 Temp 97.7 97.3 Pulse 49 58 56 Resp 17 17 17 B/P (MAP) 111/41 (64) 111/79 (90) Pulse Ox 100 98 98 100 O2 Delivery Room Air Room Air Nasal Cannula O2 Flow Rate 2.00 04/27/20 04/27/20 04/27/20 04/27/20 18:37 18:38 18:41 19:08 Temp 98.0 Pulse 70 Resp 18 B/P (MAP) 104/65 (78) Pulse Ox 99 O2 Delivery Room Air Room Air Nasal Cannula O2 Flow Rate 2.00 Laboratory Tests Test 04/27/20 17:45 White Blood Count 9.3 10^3/uL Red Blood Count 3.65 10^6/uL Hemoglobin 11.6 g/dL Hematocrit 34.1 % Mean Corpuscular Volume 93.4 fL Mean Corpuscular Hemoglobin 31.8 pg Mean Corpuscular Hemoglobin Concent 34.0 g/dL Red Cell Distribution Width 12.4 % Platelet Count 240 10^3/uL Mean Platelet Volume 9.7 fL Current Medications Medications (Trade) Dose Ordered Sig/Donell PRN Reason Start Time Stop Time Status Last Admin Acetaminophen (Tylenol) 1,000 mg Q6HR 04/27/20 18:00 05/27/20 17:59 UNV 04/27/20 18:48 Albuterol Sulfate (Ventolin) 2.5 mg OT PRN wheezing 04/27/20 15:00 UNV Celecoxib (Celebrex) 200 mg BID 04/27/20 21:00 05/27/20 20:59 UNV Diazepam (Valium) 5 mg Q6HR PRN MUSCLE SPASM 04/27/20 15:00 05/27/20 14:59 UNV Diazepam (Valium) 10 mg OT PRN ANXIETY 04/27/20 09:00 05/27/20 08:59 UNV 04/27/20 17:17 Diphenhydramine HCl (Benadryl) 25 mg Q5MIN PRN NAUSEA / VOMITING 04/27/20 15:00 UNV Docusate Sodium (Colace) 100 mg DAILY 04/28/20 09:00 05/28/20 08:59 UNV Ephedrine Sulfate (Ephedrine Sulfate) 5 mg PRN PRN HYPOTENSION SBP <90, 04/27/20 15:00 UNV Famotidine (Pepcid) 20 mg DAILY 04/28/20 09:00 05/28/20 08:59 UNV Fentanyl Citrate (Sublimaze) 12.5 mcg Q5MIN PRN PAIN 04/27/20 15:00 04/28/20 14:59 UNV 04/27/20 14:53 Hydromorphone HCl (Dilaudid) 0.2 mg Q5M PRN PAIN 1 - 3 04/27/20 15:00 04/28/20 14:59 UNV Hydromorphone HCl (Dilaudid) 2 mg Q6HR PRN PAIN 7 - 10 04/27/20 15:00 05/27/20 14:59 UNV Labetalol HCl (Trandate) 5 mg Q5MIN PRN HYPERTENSION 04/27/20 15:00 05/27/20 14:59 UNV Meperidine HCl (Demerol) 12.5 mg Q5MIN PRN SHIVERING 04/27/20 15:00 05/27/20 14:59 UNV Ondansetron HCl (Zofran) 4 mg OT PRN nausea 04/27/20 15:00 UNV Rivaroxaban (Xarelto) 10 mg DAILY 04/28/20 09:00 05/28/20 08:59 UNV Throat Lozenges (Cepacol Sore Throat Lozenge) 1 each PRN PRN SORE THROAT 04/27/20 15:00 05/27/20 14:59 UNV Tramadol HCl (Ultram) 50 mg Q4HR 04/27/20 16:00 05/27/20 15:59 UNV Tramadol HCl (Ultram) 100 mg Q4HR PRN PAIN 4 - 6 04/27/20 15:00 05/27/20 14:59 UNV 04/27/20 17:16 Vancomycin HCl 1 gm/Sodium Chloride 250 ml @ 175 mls/hr Q12H 04/27/20 15:00 04/28/20 16:26 UNV LEVEL 1 SEPSIS INFECTION CRITE: Recent Invasive Procedure LEVEL 2-SIRS (LIST ALL THAT AP: None/Not assessed Cardiovascular Evidence: Not Assessed or None Hematologic Evidence: None/Not assessed Hepatic Evidence: None/Not assessed Metabolic Evidence: None/Not assessed Neurological Evidence: None/Not assessed Respiratory Evidence: None/Not assessed Renal Evidence: None/Not assessed O2 Sat by Pulse Oximetry: 98 Oxygen Flow Rate: 2.00 ARMANDO NUNEZ MD May 01, 2020 10:27
[2020-05-01] MEDS: ULTRAM PO PRN ×3 (13:10→21:30)
[2020-05-01 15:24] VITALS: BP 122/86
--- NOTE | 2020-05-01 20:15 | NUR ---
CPM TO RLE, 3THIRD RAIL UP CALL LIGHT IN PT REACH
[2020-05-01 20:44] VITALS: BP 127/78
--- NOTE | 2020-05-01 21:20 | NUR ---
CPM OFF AT THIS TIME, PT UP TO BR WITH WALKER AND ASSIST X1
[2020-05-01] MEDS ORDERED: NS 500ML 500 ML IV ONE (22:34)
[2020-05-02 00:32] VITALS: BP 127/85
--- NOTE | 2020-05-02 01:45 | NUR ---
pt up to br then ambulated in the [facility]eda.
[2020-05-02] MEDS: TORADOL IV PRN (01:57)
[2020-05-02] MEDS: ULTRAM PO SCH ×2 (04:33→08:00)
[2020-05-02 04:40] VITALS: BP 112/72
[2020-05-02] MEDS: OFIRMEV IV SCH (05:30)
[2020-05-02 06:55] VITALS: BP 128/78
--- NOTE | 2020-05-02 07:45 | NUR ---
Placed patient on CPM at this time. Denies any discomfort. Call light in reach bed is low and locked. Will continue to monitor.
[2020-05-02] MEDS: XARELTO PO SCH (09:13)
[2020-05-02] MEDS: NEURONTIN PO SCH (09:13)
[2020-05-02] MEDS: CELEBREX PO SCH (09:13)
[2020-05-02] MEDS: COLACE PO SCH (09:13)
[2020-05-02] MEDS: PEPCID PO SCH (09:13)
[2020-05-02] MEDS: VALIUM PO PRN (09:14)
[2020-05-02] MEDS: ULTRAM PO PRN (09:17)
--- NOTE | 2020-05-02 09:20 | PRM.PN ---
Subjective Subjective Date: May 02, 2020 Time: 09:19 Subjective Pain better today Independent with PT and OT VSS Will dc Appt 2 days Patient History: Alzheimer's disease G8 MOTHER Asthma G8 FATHER Hypertension G8 FATHER No known health problems G8 BROTHER G8 SISTER G8 SISTER 19 CHILD No Family History of: Cerebrovascular disorder Chronic obstructive pulmonary disease Congestive heart failure Diabetes insipidus Diabetes mellitus Parkinson's disease VTE VTE Risk Total Score: >5 VTE Risk Score VTE Risk: Score 0-1 = Low Risk (Aggressive mobilization; early ambulation; no VTE prophylaxis required) Score 2: Moderate Risk (Intermittent/Pneumatic Compression Device OR Lovenox/Heparin/Coumadin) Score 3-4: High Risk (Intermittent/Pneumatic Compression Device AND Lovenox/Heparin/Coumadin) Score > or =5: Highest Risk (Intermittent/Pneumatic Compression Device AND Lovenox/Heparin/Coumadin) Review of Systems Allergies: Coded Allergies: Penicillins (Verified Allergy, Severe, Anaphylaxis Shock, 04/25/20) minocycline (Verified Allergy, Unknown, DIZZINESS, 04/25/20) Scheduled Ascorbic Acid (Vitamin C), 500 MG PO DAILY24 Aspirin (Aspir 81), 1 TAB PO QD, (Reported) Diclofenac Potassium (Diclofenac Potassium), 1 TAB PO BID, (Reported) Multivitamin (Multi Vitamin Daily), 1 EACH PO DAILY24 Omeprazole (Omeprazole), 1 CAP PO DAILY, (Reported) Vitamin A (Vitamin A), 8,000 UNIT PO DAILY24 Vitamin D3/Folic Acid (Dermacinrx Purefolix Tablet), 10,000 UNIT PO 5 X WEEK [Black Seed Oil], 1 CAP PEG DAILY24, (Reported) Objective Vitals and I/O Vital Sign - Last 24 Hours 05/01/20 05/01/20 05/01/20 05/01/20 09:30 15:24 15:24 20:38 Temp 98.0 Pulse 70 77 79 Resp 18 18 18 B/P (MAP) 122/86 (98) Pulse Ox 98 96 97 O2 Delivery Room Air Room Air Room Air FiO2 21 05/01/20 05/01/20 05/02/20 05/02/20 20:44 20:46 00:32 04:09 Temp 98.0 97.6 Pulse 70 72 Resp 18 18 B/P (MAP) 127/78 (94) 127/85 (99) Pulse Ox 93 92 O2 Delivery Room Air Room Air Room Air Room Air 05/02/20 05/02/20 05/02/20 04:40 06:55 08:08 Temp 97.7 97.6 Pulse 61 64 67 Resp 16 16 17 B/P (MAP) 112/72 (85) 128/78 (95) Pulse Ox 93 96 98 O2 Delivery Room Air Room Air Room Air Intake and Output 05/02/20 07:00 Intake Total 346 ml Output Total 1350 ml Balance -1004 ml All Results(Lab/Rad) Laboratory Tests Test 04/27/20 17:45 White Blood Count 9.3 10^3/uL Red Blood Count 3.65 10^6/uL Hemoglobin 11.6 g/dL Hematocrit 34.1 % Mean Corpuscular Volume 93.4 fL Mean Corpuscular Hemoglobin 31.8 pg Mean Corpuscular Hemoglobin Concent 34.0 g/dL Red Cell Distribution Width 12.4 % Platelet Count 240 10^3/uL Mean Platelet Volume 9.7 fL Current Medications Medications (Trade) Dose Ordered Sig/Donell Route PRN Reason Start Time Stop Time Status Last Admin Dose Admin Sodium Chloride 250 ml @ ud STK-MED ONCE IV 04/26/20 08:53 04/26/20 08:55 DC Vancomycin HCl 1 ml @ ud STK-MED ONCE .ROUTE 04/26/20 08:53 04/26/20 08:56 DC Mupirocin (Bactroban Ointment) 1 gm STK-MED ONCE TP 04/26/20 08:55 04/26/20 08:58 DC Vancomycin HCl 1 gm/Sodium Chloride 250 ml @ 175 mls/hr OT ONCE IV 04/27/20 06:00 04/27/20 07:25 UNV 04/27/20 10:20 Mupirocin (Bactroban) 1 gm OT ONCE TP 04/27/20 06:00 04/27/20 06:01 UNV Sodium Chloride (Sodium Chloride Irr Bottle) 1,000 ml STK-MED ONCE IR 04/27/20 07:10 04/27/20 07:13 DC Sterile Water (Water) 1,000 ml STK-MED ONCE .ROUTE 04/27/20 07:10 04/27/20 07:13 DC Sodium Chloride 100 ml @ ud STK-MED ONCE IV 04/27/20 07:10 04/27/20 07:13 DC Sodium Chloride 250 ml @ ud STK-MED ONCE IV 04/27/20 07:11 04/27/20 07:13 DC Sodium Chloride (NS 3000ml Irr) 3,000 ml STK-MED ONCE IR 04/27/20 07:11 04/27/20 07:14 DC Mupirocin (Bactroban Ointment) 1 gm OT ONCE TP 04/27/20 08:50 04/27/20 08:51 UNV Diazepam (Valium) 10 mg OT PRN PO ANXIETY 04/27/20 09:00 05/27/20 08:59 UNV 04/27/20 17:17 Ropivacaine (Naropin 0.2% 40 Mg/20 ml Vial) 2 mg STK-MED ONCE .ROUTE 04/27/20 11:42 04/27/20 11:44 DC Lidocaine HCl (Lidocaine 2% Vial) 500 mg STK-MED ONCE .ROUTE 04/27/20 11:42 04/27/20 11:44 DC Neostigmine Methylsulfate (Neostigmine) 10 mg STK-MED ONCE .ROUTE 04/27/20 11:42 04/27/20 11:44 DC Ketorolac Tromethamine (Toradol) 30 mg STK-MED ONCE .ROUTE 04/27/20 11:42 04/27/20 11:44 DC Ondansetron HCl (Zofran) 4 mg STK-MED ONCE .ROUTE 04/27/20 11:43 04/27/20 11:44 DC Dexamethasone Sodium Phosphate (Decadron) 10 mg STK-MED ONCE .ROUTE 04/27/20 11:43 04/27/20 11:44 DC Rocuronium Richey (Rocuronium Richey) 50 mg STK-MED ONCE IV 04/27/20 11:43 04/27/20 11:45 DC Fentanyl Citrate (Sublimaze) 50 mcg STK-MED ONCE .ROUTE 04/27/20 11:43 04/27/20 11:45 DC Hydromorphone HCl (Dilaudid) 2 mg STK-MED ONCE .ROUTE 04/27/20 11:44 04/27/20 11:46 DC Propofol (Diprivan) 200 mg STK-MED ONCE IV 04/27/20 11:44 04/27/20 11:46 DC Tramadol HCl (Ultram) 50 mg Q4HR PO 04/27/20 16:00 05/27/20 15:59 UNV Tramadol HCl (Ultram) 100 mg Q4HR PRN PO PAIN 4 - 6 04/27/20 15:00 05/27/20 14:59 UNV 04/27/20 17:16 Rivaroxaban (Xarelto) 10 mg DAILY PO 04/28/20 09:00 05/28/20 08:59 UNV Docusate Sodium (Colace) 100 mg DAILY PO 04/28/20 09:00 05/28/20 08:59 UNV Throat Lozenges (Cepacol Sore Throat Lozenge) 1 each PRN PRN MM SORE THROAT 04/27/20 15:00 05/27/20 14:59 UNV Famotidine (Pepcid) 20 mg DAILY PO 04/28/20 09:00 05/28/20 08:59 UNV Celecoxib (Celebrex) 200 mg BID PO 04/27/20 21:00 05/27/20 20:59 UNV Vancomycin HCl 1 gm/Sodium Chloride 250 ml @ 175 mls/hr Q12H IV 04/27/20 15:00 04/28/20 16:26 UNV Acetaminophen (Tylenol) 1,000 mg Q6HR PO 04/27/20 18:00 05/27/20 17:59 UNV 04/27/20 18:48 Diazepam (Valium) 5 mg Q6HR PRN PO MUSCLE SPASM 04/27/20 15:00 05/27/20 14:59 UNV Hydromorphone HCl (Dilaudid) 2 mg Q6HR PRN IV PAIN 7 - 10 04/27/20 15:00 05/27/20 14:59 UNV Hydromorphone HCl (Dilaudid) 0.2 mg Q5M PRN IV PAIN 1 - 3 04/27/20 15:00 04/28/20 14:59 UNV Fentanyl Citrate (Sublimaze) 12.5 mcg Q5MIN PRN IV PAIN 04/27/20 15:00 04/28/20 14:59 UNV 04/27/20 14:53 Ondansetron HCl (Zofran) 4 mg OT PRN IV nausea 04/27/20 15:00 UNV Diphenhydramine HCl (Benadryl) 25 mg Q5MIN PRN IV NAUSEA / VOMITING 04/27/20 15:00 UNV Ephedrine Sulfate (Ephedrine Sulfate) 5 mg PRN PRN IV HYPOTENSION SBP <90, 04/27/20 15:00 UNV Meperidine HCl (Demerol) 12.5 mg Q5MIN PRN IV SHIVERING 04/27/20 15:00 05/27/20 14:59 UNV Albuterol Sulfate (Ventolin) 2.5 mg OT PRN IH wheezing 04/27/20 15:00 UNV Labetalol HCl (Trandate) 5 mg Q5MIN PRN IV HYPERTENSION 04/27/20 15:00 05/27/20 14:59 UNV Acetaminophen 100 ml @ ud STK-MED ONCE IV 04/27/20 14:47 04/27/20 14:49 DC Fentanyl Citrate (Sublimaze) 50 mcg STK-MED ONCE .ROUTE 04/27/20 14:48 04/27/20 14:50 DC Acetaminophen (Ofirmev) 1,000 mg OT ONCE IV 04/27/20 15:00 04/27/20 15:01 UNV Morphine Sulfate (Morphine Sulfate) 2 mg STK-MED ONCE .ROUTE 04/27/20 15:28 04/27/20 15:30 DC Course Sepsis Screening Results: Posi: NEGATIVE Sepsis Qualifier/Stage: NO DEFINITE RISK Vitals & review Data Vital Sign - Last 24 Hours 04/27/20 04/27/20 04/27/20 04/27/20 08:56 08:56 14:27 14:27 Temp 98.2 97.0 Pulse 84 69 Resp 16 16 B/P (MAP) 125/82 (96) 138/78 (98) Pulse Ox 98 96 O2 Delivery Room Air Room Air Non-Rebreather O2 Flow Rate 15 15 04/27/20 04/27/20 04/27/20 04/27/20 14:37 14:47 14:57 15:07 Temp 97.7 97.9 97.5 97.1 Pulse 55 64 62 57 Resp 17 18 18 18 B/P (MAP) 120/58 (78) 113/64 (80) 102/41 (61) 110/50 (70) Pulse Ox 100 100 98 99 O2 Delivery Non-Rebreather Non-Rebreather Room Air Room Air O2 Flow Rate 10 10 04/27/20 04/27/20 04/27/20 04/27/20 15:17 15:27 17:14 17:28 Temp 97.7 97.3 Pulse 49 58 56 Resp 17 17 17 B/P (MAP) 111/41 (64) 111/79 (90) Pulse Ox 100 98 98 100 O2 Delivery Room Air Room Air Nasal Cannula O2 Flow Rate 2.00 04/27/20 04/27/20 04/27/20 04/27/20 18:37 18:38 18:41 19:08 Temp 98.0 Pulse 70 Resp 18 B/P (MAP) 104/65 (78) Pulse Ox 99 O2 Delivery Room Air Room Air Nasal Cannula O2 Flow Rate 2.00 Laboratory Tests Test 04/27/20 17:45 White Blood Count 9.3 10^3/uL Red Blood Count 3.65 10^6/uL Hemoglobin 11.6 g/dL Hematocrit 34.1 % Mean Corpuscular Volume 93.4 fL Mean Corpuscular Hemoglobin 31.8 pg Mean Corpuscular Hemoglobin Concent 34.0 g/dL Red Cell Distribution Width 12.4 % Platelet Count 240 10^3/uL Mean Platelet Volume 9.7 fL Current Medications Medications (Trade) Dose Ordered Sig/Donell PRN Reason Start Time Stop Time Status Last Admin Acetaminophen (Tylenol) 1,000 mg Q6HR 04/27/20 18:00 05/27/20 17:59 UNV 04/27/20 18:48 Albuterol Sulfate (Ventolin) 2.5 mg OT PRN wheezing 04/27/20 15:00 UNV Celecoxib (Celebrex) 200 mg BID 04/27/20 21:00 05/27/20 20:59 UNV Diazepam (Valium) 5 mg Q6HR PRN MUSCLE SPASM 04/27/20 15:00 05/27/20 14:59 UNV Diazepam (Valium) 10 mg OT PRN ANXIETY 04/27/20 09:00 05/27/20 08:59 UNV 04/27/20 17:17 Diphenhydramine HCl (Benadryl) 25 mg Q5MIN PRN NAUSEA / VOMITING 04/27/20 15:00 UNV Docusate Sodium (Colace) 100 mg DAILY 04/28/20 09:00 05/28/20 08:59 UNV Ephedrine Sulfate (Ephedrine Sulfate) 5 mg PRN PRN HYPOTENSION SBP <90, 04/27/20 15:00 UNV Famotidine (Pepcid) 20 mg DAILY 04/28/20 09:00 05/28/20 08:59 UNV Fentanyl Citrate (Sublimaze) 12.5 mcg Q5MIN PRN PAIN 04/27/20 15:00 04/28/20 14:59 UNV 04/27/20 14:53 Hydromorphone HCl (Dilaudid) 0.2 mg Q5M PRN PAIN 1 - 3 04/27/20 15:00 04/28/20 14:59 UNV Hydromorphone HCl (Dilaudid) 2 mg Q6HR PRN PAIN 7 - 10 04/27/20 15:00 05/27/20 14:59 UNV Labetalol HCl (Trandate) 5 mg Q5MIN PRN HYPERTENSION 04/27/20 15:00 05/27/20 14:59 UNV Meperidine HCl (Demerol) 12.5 mg Q5MIN PRN SHIVERING 04/27/20 15:00 05/27/20 14:59 UNV Ondansetron HCl (Zofran) 4 mg OT PRN nausea 04/27/20 15:00 UNV Rivaroxaban (Xarelto) 10 mg DAILY 04/28/20 09:00 05/28/20 08:59 UNV Throat Lozenges (Cepacol Sore Throat Lozenge) 1 each PRN PRN SORE THROAT 04/27/20 15:00 05/27/20 14:59 UNV Tramadol HCl (Ultram) 50 mg Q4HR 04/27/20 16:00 05/27/20 15:59 UNV Tramadol HCl (Ultram) 100 mg Q4HR PRN PAIN 4 - 6 04/27/20 15:00 05/27/20 14:59 UNV 04/27/20 17:16 Vancomycin HCl 1 gm/Sodium Chloride 250 ml @ 175 mls/hr Q12H 04/27/20 15:00 04/28/20 16:26 UNV LEVEL 1 SEPSIS INFECTION CRITE: Recent Invasive Procedure LEVEL 2-SIRS (LIST ALL THAT AP: None/Not assessed Cardiovascular Evidence: Not Assessed or None Hematologic Evidence: None/Not assessed Hepatic Evidence: None/Not assessed Metabolic Evidence: None/Not assessed Neurological Evidence: None/Not assessed Respiratory Evidence: None/Not assessed Renal Evidence: None/Not assessed O2 Sat by Pulse Oximetry: 98 Oxygen Flow Rate: 2.00 ARMANDO NUNEZ MD May 02, 2020 09:20
--- NOTE | 2020-05-02 09:51 | DSH ---
DATE OF DISCHARGE: 05/02/2020 ADMITTING DIAGNOSIS: Osteoarthritis of the right knee. DISCHARGE DIAGNOSES: Osteoarthritis of the right knee plus postoperative anemia secondary to surgical blood loss, expected. CONSULTATIONS: None. COMPLICATIONS: None. SUMMARY OF ADMISSION: The patient is a 65-year-old female with severe pain about the right knee secondary to osteoarthritis. The patient had limitations in her daily activities. She was no better with home exercise program, bracing, cortisone injections, anti-inflammatories. MRI scan showed tricompartmental OA about the right knee. The patient was taken to the operating room on 04/27/2020 where she underwent right total knee arthroplasty. Postoperatively, the patient had a very difficult time obtaining satisfactory pain control. The patient was given multiple different types of nonnarcotic as well as narcotic medications in an effort to try to control her pain. Her x-rays were repeated during her postoperative course and basically showed no changes from the original postoperative x-rays. The patient on discharge is able to transfer in and out of bed independently. She can use her walker and walk at least 100 feet. The patient has full extension of her knee and 90 degrees of passive flexion. The patient's neurovascular exam has been intact throughout her postoperative course. Her hemoglobin dropped to a low of 9.7 and felt to be secondary to postoperative surgical blood loss; however, on discharge it is back up to 11. The patient has been on a regular diet throughout her postoperative course. On discharge, her pain is being controlled with Celebrex, gabapentin as well as tramadol and IV Tylenol. The patient will be instructed to use her walker and weightbear as tolerated. She will keep her leg elevated as much as possible. She will continue with her ice machine. She will do physical therapy at the hospital. She will have an appointment in my office in 2 days. Jose A Velazquez MD DR: STEPAN/radha JOB# [id number]
[2020-05-02 11:31] VITALS: BP 128/78
--- NOTE | 2020-05-02 12:26 | NUR ---
DISCHARGE PATIENT BEING DISCHARGED HOME AT THIS TIME IN STABLE CONDITION. PATIENT DENIES ANY ADDITIONAL RESOURCES AT THIS TIME. EDUCATED PATIENT ON INSTRUCTIONS FOR PREVENA AND FOLLOW-UP APPOINTMENT. PATIENT WAS ASSISTED DOWNSTAIRS VIA WHEELCHAIR BY HOSPITAL PERSONNEL. RELINQUISHED CARE FOR PATIENT AT THIS TIME.
[2020-05-05] MEDS ORDERED: DILAUDID IV PRN (15:00)
[2020-05-05] MEDS ORDERED: NEURONTIN PO SCH (15:00)
[2020-05-05] MEDS ORDERED: TORADOL IV PRN (15:00)
[2020-05-05] MEDS ORDERED: LACTATED RINGERS 1,000 ML IV SCH (15:00)
[2020-05-05] MEDS ORDERED: ULTRAM PO PRN (15:00)
[2020-05-05] MEDS ORDERED: FLEXERIL PO PRN (15:00)
[2020-05-05 15:37] LABS: MEAN CORP HGB 31.9 pg (26-34); RED CELL DISTRIBUTION WIDTH 12.4 % (11.5-14.5)
[2020-05-05] MEDS ORDERED: ULTRAM PO SCH (16:00)
--- NOTE | 2020-05-05 16:46 | DIREP ---
PROCEDURE:US DUPLEX EXTREM VEINS UNILATER/LIMITED-RT COMPARISON:None. INDICATIONS:evaluate for dvt TECHNIQUE:The right lower extremity was evaluated utilizing florentino scale images with segmental compression, color Doppler, and spectral Doppler with respiratory variation and augmentation. FINDINGS: Common femoral vein:Patent Superficial femoral vein:Patent Profunda femoris vein:Patent Popliteal vein:Patent Posterior tibial vein:Patent Peroneal vein:Patent Waveforms: Within normal limits. CONCLUSION:No evidence of deep venous thrombosis of the right lower extremity. Dictated by: KISHORE Physician on 05/05/2020 at 04:34 PM bs
[2020-05-05] MEDS ORDERED: CELEBREX PO SCH (21:00)
[2020-05-06] MEDS ORDERED: COLACE PO SCH (09:00)
[2020-05-06] MEDS ORDERED: PEPCID PO SCH (09:00)
== END 2020-05-02 11:55 | disposition home or self-care (01) | DRG 470 ==
LOC: SDC 09:00 → EDSTATUS 11:00 → MS 16:36
PROVIDERS: ADMIT Orthopaedic Surgery; ATTEND Orthopaedic Surgery
PROC: 3E0T3BZ Introduction of Anesthetic Agent into Peripheral Nerves and Plexi, Percutaneous Approach (ICD-10-PCS; 2020-04-27)
PROC: 0SRC0J9 Replacement of Right Knee Joint with Synthetic Substitute, Cemented, Open Approach (ICD-10-PCS; principal; 2020-04-27 11:50)
DX: M17.11 Unilateral primary osteoarthritis, right knee (principal); D62 Acute posthemorrhagic anemia; Z90.710 Acquired absence of both cervix and uterus; Z88.0 Allergy status to penicillin; Z88.1 Allergy status to other antibiotic agents; Z90.49 Acquired absence of other specified parts of digestive tract
CPT/HCPCS: 36415; 73560; 80053; 85025; 85027; 87070; 93005; 97161; 97530; A4217; C1713; C1776; G0378; J0131; J1100; J1170; J1885; J2001; J2250; J2405; J2710; J2795; J3010; J3370; J3490; J7040; J7050; J7120; 93971; 97110-GP; 97116-GP; 97760-GP; J8499

== ENCOUNTER 2020-05-04 23:57 | Emergency (ER) ==
[~2020-05-04] VITALS: Ht 170.2 cm; Wt 68.0 kg
[~2020-05-04 23:57] MED LIST changes: +ASCO500C PO; -BACTROBAN OINTMENT TP ONE; -BACTROBAN TP ONE; -LACTATED RINGERS 1,000 ML ONE; +MULT-632 PO; -NS 100ML 100 ML IV ONE; -NS 250ML 250 ML IV ONE; -NS 3000ML IRR IR ONE; -SODIUM CHLORIDE IRR BOTTLE IR ONE; -VANCOMYCIN HCL 1 GM ONE; -VANCOMYCIN HCL 1 GM in NS 250ML 250 ML IV ONE; +VITA50004 PO; +VITA80003 PO; -WATER ONE
--- NOTE | 2020-05-05 00:18 | ER.PDOC ---
General Chief Complaint: Requesting Medical Care Stated Complaint: KNEE PAIN TRAVEL OUT OF US: No Time seen by MD: 00:05 Source: patient, family Exam Limitations: no limitations History of Present Illness Initial Comments patient is here secondary to left knee pain post op, she had total knee replacement one week ago and has pain in the left knee since the surgery, she is on tylenol 4 which does not relieve the pain, she saw dr nunez in his office this week post op also, she has no redness or calf pain she states the pain is confined to the left knee. no fever no diabetes. Timing/Duration: 1 week Severity: moderate Modifying Factors: improves with movement Allergies: Coded Allergies: Penicillins (Verified Allergy, Severe, Anaphylaxis Shock, 04/25/20) minocycline (Verified Allergy, Unknown, DIZZINESS, 04/25/20) Home Meds Active Scripts Vitamin D3/Folic Acid (Dermacinrx Purefolix Tablet) 5,000 Unit-1 Mg Tablet, 36049 UNIT PO 5 X WEEK for 30 Days, TAB Prov:ARMANDO NUNEZ MD 04/27/20 Ascorbic Acid (VITAMIN C) 500 Mg Capsule.er, 500 MG PO DAILY24 for 30 Days, CAP.SR Prov:ARMANDO NUNEZ MD 04/27/20 Vitamin A (VITAMIN A) 8,000 Unit Capsule, 8000 UNIT PO DAILY24 for 30 Days, CA PSULE Prov:ARMANDO NUNEZ MD 04/27/20 Multivitamin (Multi Vitamin Daily) 1 Each Tablet, 1 EACH PO DAILY24 for 30 Days, TAB Prov:ARMANDO NUNEZ MD 04/27/20 Reported Medications Aspirin (ASPIR 81) 81 Mg Tablet.dr, 1 TAB PO QD for 30 Days, #30 TAB 0 Refills 04/25/20 [Black Seed Oil] No Conflict Check, 1 CAP PEG DAILY24 04/25/20 Omeprazole (OMEPRAZOLE) 20 Mg Capsule.dr, 1 CAP PO DAILY, #30 CAP 5 Refills 04/25/20 Diclofenac Potassium (DICLOFENAC POTASSIUM) 50 Mg Tablet, 1 TAB PO BID, #60 TAB 1 Refill 04/25/20 Review of Systems Constitutional: denies chills, denies fever EENTM: denies throat pain Respiratory: denies cough, denies shortness of breath Cardiovascular: denies chest pain Gastrointestinal: denies abdominal pain Genitourinary: denies pain Musculoskeletal: denies back pain, denies neck pain Skin: denies rash Psychiatric/Neurological: denies headache Hematologic/Lymphatic: denies blood clots Physical Exam General Appearance: No Apparent Distress, WD/WN EENT: eyes nml inspection, nml ENT inspection Neck: Non-Tender, Full Range of Motion Respiratory: lungs clear CVS: reg rate & rhythm Gastrointestinal: Non Tender Extremities: Other Neurologic/Psychiatric: membership correspondent II-XII NML as Tested, No Motor/Sensory Deficits, Alert, Normal Mood/Affect Skin: Normal Color Comments surgical incision site left knee well healing with maliha in place, no erythema or increased warmth, no calf pain noted Results/Orders Results/Orders Orders - ARMANDO KIRKPATRICK MD Xr Knee Lt 3v (05/05/20 00:16) Hydromorphone Hcl (Dilaudid) (05/05/20 00:30) Hydromorphone Hcl (Dilaudid) (05/05/20 00:30) Vital Signs Date Time Temp Pulse Resp B/P (MAP) Pulse Ox O2 Delivery O2 Flow Rate FiO2 05/05/20 00:24 98.1 72 20 147/78 (101) 100 Room Air 05/05/20 00:19 98.1 72 20 147/78 (101) 100 Room Air 05/05/20 00:19 98.1 72 20 05/05/20 00:19 98.1 72 20 100 Administered Medications Medications (Trade) Dose Ordered Sig/Donell Route PRN Reason Start Time Stop Time Status Last Admin Dose Admin Hydromorphone HCl (Dilaudid) 1 mg STAT ONCE IM 05/05/20 00:30 05/05/20 02:04 DC 05/05/20 00:38 1 MG Progress Progress offered aspiration of joint to ensure no infection which was refused by the patient. patient understands cannot rule out infection of joint without asp iration, no us completed as complaint is not calf pain but pain in the left knee since surgery one week ago therefore no dvt workup, looked up [facility] Departure Time of Disposition: 00:58 Impression: Primary Impression: Knee pain Additional Impression: Post-op pain If Transfer, List PT Destinati: discharge to home in good condition Patient Instructions: Knee Pain Referrals: ARMANDO NUNEZ MD (PCP) PRIMARY CARE PROVIDER Additional Instructions: an infection cannot be ruled out without aspiration of joint which you refused today. return for any worsening symptoms, stop your Tylenol #4, do not take any Tylenol medications with norco. Duration or Time Spent with Pa: 20 Return to Work/School Can a patient return to work?: No Can a patient return to school: No Problem Qualifiers Primary Impression: Knee pain Chronicity: unspecified Laterality: right Qualified Codes: M25.561 - Pain in right knee ARMANDO KIRKPATRICK MD May 05, 2020 00:18
[2020-05-05 00:19] VITALS: BP 147/78
[2020-05-05 00:24] VITALS: BP 147/78
[2020-05-05] MEDS ORDERED: DILAUDID ONE (00:26)
[2020-05-05] MEDS ORDERED: DILAUDID IM ONE (00:30)
[2020-05-05] MEDS ORDERED: DILAUDID IV ONE (00:30)
--- NOTE | 2020-05-05 00:42 | DIREP ---
PROCEDURE:XRAY KNEE 3 VIEWS-LT COMPARISON:[facility], CR, XRAY KNEE 1-2 VWS-RT, 04/28/2020, 03:50 PM. INDICATIONS:left knee pain post op FINDINGS: BONES:Status post total left knee replacement. Hardware intact. Satisfactory alignment. No significant interval change JOINTS:Normal. SOFT TISSUES:Normal. OTHER:No additional findings. CONCLUSION:Satisfactory right knee replacement, unchanged from previous examination. Dictated by: Juan Torres MD on 05/05/2020 at 00:39 AM
== END 2020-05-05 01:56 ==
LOC: ER 23:57
DX: G89.18 Other acute postprocedural pain (principal); M25.562 Pain in left knee; Z88.0 Allergy status to penicillin; Z88.8 Allergy status to other drugs, medicaments and biological substances; Z79.82 Long term (current) use of aspirin
CPT/HCPCS: 73562; 96372; 99284; J1170